=== PATIENT | male | born 1960 | race Caucasian/White ===

== ENCOUNTER 2016-11-17 11:35 | Observation (INO) | payer OTHER ==
[~2016-11-17] VITALS: Ht 182.9 cm; Wt 123.9 kg
[2016-11-17] MEDS ORDERED: RX-NITROGLYCERIN 0.4 MG TAB BTL 25'S SL ONE (11:39)
[2016-11-17] MEDS ORDERED: ASPIRIN 81 MG CHEW (CHILDREN'S ASA) ONE (11:40)
--- OUTSIDE RECORDS SUMMARY | 2016-11-17 11:40 | XMS REPORT ---
Author MINO Thompson [facility] eClinicalWorks Address Unknown Phone Unavailable Care Team Providers Care Supervisor Plastic Sheets Name Role Phone MINO WINN Unavailable Allergies No Known Allergies Problems Problem Type Condition Code Onset Dates Condition Status Problem CAD (coronary artery disease) I25.10 Active Problem HTN (hypertension) I10 Active Problem BPH (benign prostatic hyperplasia) N40.0 Active Problem ED (erectile dysfunction) N52.9 Active Problem Cardiac defibrillator in place Z95.810 Active Problem Social anxiety disorder F40.10 Active Problem Arthritis M19.90 Active Problem Anxiety F41.9 Active Problem Hypercholesterolemia E78.0 Active Problem Hypercholesteremia E78.0 Active Problem COPD (chronic obstructive pulmonary disease) J44.9 Active Problem Declined smoking cessation Z78.9 Active Medications Medication Code System Code Instructions Start Date End Date Status Dosage Spiriva Respimat [facility][NOTE 3] [address]-27 2.5 MCG/ACT Inhalation Once a day AprSeptember 13, 2015 1 puff Results No Known Results Summary Purpose eClinicalWorks Submission
--- OUTSIDE RECORDS SUMMARY | 2016-11-17 11:40 | XMS REPORT ---
Author Author MINO WINN Organization [facility] Address [address] [place] [address] Care Team Providers Care Olive Knocker Name Role Phone PA MINO Unavailable PROBLEMS Type Condition ICD9-CM Code [id number] Code Onset Dates Condition Status SNOMED Code Problem Cardiac defibrillator in place Z95.810 Active 144578869 Problem BPH (benign prostatic hyperplasia) N40.0 Active 423509704 Problem CAD (coronary artery disease) I25.10 Active 51050620 Problem Pure hypercholesterolemia E78.00 Active 185866728 Problem ED (erectile dysfunction) N52.9 Active 870927769 Problem Anxiety F41.9 Active 24867557 Problem Social anxiety disorder F40.10 Active 67137031 Problem Declined smoking cessation Z78.9 Active 348298929 Problem HTN (hypertension) I10 Active 33439861 Problem Arthritis M19.90 Active 6421966 Problem COPD (chronic obstructive pulmonary disease) J44.9 Active 74615801 ALLERGIES Unknown Allergies SOCIAL HISTORY No smoking Hx information available PLAN OF CARE VITAL SIGNS MEDICATIONS Medication Instructions Dosage Frequency Start Date End Date Duration Status BuPROPion HCl (XL) 150 MG Orally Once a day 2 tablet in the morning 24h Active Abilify 2 MG Orally Once a day 1 tablet 24h Active Albuterol Sulfate HFA 108 (90 Base) MCG/ACT Inhalation every 4 hrs 2 puffs as needed 4h Apr, Active Sertraline HCl 100 MG Orally Once a day 1 tablet 24h 30 days Active Breo Ellipta 100-25 MCG/INH Inhalation Once a day 1 puff 24h Aug, Active RESULTS No Results PROCEDURES No Known procedures IMMUNIZATIONS No Known Immunizations
--- OUTSIDE RECORDS SUMMARY | 2016-11-17 11:40 | XMS REPORT ---
Author MINO Thompson [facility] eClinicalWorks Address Unknown Phone Unavailable Care Team Providers Care Service Operations Manager Name Role Phone MINO WINN CP Unavailable Allergies, Adverse Reactions, Alerts Substance Reaction Event Type N.K.D.A. Info Not Available Non Drug Allergy Problems Problem Type Condition Code Onset Dates Condition Status Problem CAD (coronary artery disease) I25.10 Active Problem HTN (hypertension) I10 Active Problem BPH (benign prostatic hyperplasia) N40.0 Active Problem Social anxiety disorder F40.10 Active Problem Arthritis M19.90 Active Problem Anxiety F41.9 Active Problem Hypercholesterolemia E78.0 Active Problem Hypercholesteremia E78.0 Active Problem COPD (chronic obstructive pulmonary disease) J44.9 Active Problem Declined smoking cessation Z78.9 Active Assessment CAD (coronary artery disease) I25.10 Active Assessment HTN (hypertension) I10 Active Assessment ED (erectile dysfunction) N52.9 Active Assessment Social anxiety disorder F40.10 Active Assessment COPD (chronic obstructive pulmonary disease) J44.9 Active Assessment Hypercholesterolemia E78.0 Active Problem ED (erectile dysfunction) N52.9 Active Assessment Arthritis M19.90 Active Problem Cardiac defibrillator in place Z95.810 Active Medications Medication Code System Code Instructions Start Date End Date Status Dosage Abilify [facility] [address]-44 2 MG Orally Once a day 1 tablet Pravastatin Sodium [facility] [address]-02 20 MG Orally Once a day May 17, 2015 1 tablet Breo Ellipta [facility] [address]-00 100-25 MCG/INH Inhalation Once a day August 1 puff Lisinopril [facility] [address]-86 20 mg Orally Once a day 1 tablet BuPROPion HCl (XL) [facility] [address]-55 150 MG Orally Once a day 2 tablet in the morning Albuterol Sulfate HFA [facility] [address]-49 108 (90 Base) MCG/ACT Inhalation every 4 hrs May 09, 2015 2 puffs as needed Procedures Procedure Coding System Code Date Office Visit, Est Pt., Level 4 CPT-4 25306 2015 Vital Signs Date/Time: 2015 Cardiac Monitoring Heart Rate 72 bpm Weight 267.7 lbs Height 72 in BMI 36.30 Index Blood Pressure Diastolic 84 mmHg Blood Pressure Systolic 128 mmHg Results No Known Results Summary Purpose eClinicalWorks Submission
--- OUTSIDE RECORDS SUMMARY | 2016-11-17 11:40 | XMS REPORT ---
Author MINO Thompson [facility] eClinicalWorks Address Unknown Phone Unavailable Care Team Providers Care Computer Project Manager Name Role Phone MINO WINN Unavailable Allergies [...] Problem Declined smoking cessation Z78.9 Active Assessment BPH (benign prostatic hyperplasia) N40.0 Active Assessment COPD (chronic obstructive pulmonary disease) J44.9 Active Problem ED (erectile dysfunction) N52.9 Active Problem Cardiac defibrillator in place Z95.810 Active Medications Medication Code System Code Instructions Start Date End Date Status Dosage Albuterol Sulfate A [facility] [address]-51 108 (90 Base) MCG/ACT Inhalation every 4 hrs May 09, 2015 2 puffs as needed Results No Known Results Summary Purpose eClinicalWorks Submission
--- OUTSIDE RECORDS SUMMARY | 2016-11-17 11:40 | XMS REPORT ---
Author MINO Thompson [facility] eClinicalWorks Address Unknown Phone Unavailable Care Team Providers Care City Collector Name Role Phone MINO WINN CP Unavailable Allergies No Known Allergies Problems Problem [...] Problem Declined smoking cessation Z78.9 Active Medications No Known Medications Results No Known Results Summary Purpose eClinicalWorks Submission
--- OUTSIDE RECORDS SUMMARY | 2016-11-17 11:40 | XMS REPORT ---
Author MINO Thompson [facility] eClinicalWorks Address Unknown Phone Unavailable Care Team Providers Care Environmental Sciences Professor Name Role Phone MINO WINN Unavailable Allergies [...] Instructions Start Date End Date Status Dosage Sertraline HCl [facility] [address]-09 100 MG Orally Once a day 1 tablet Results No Known Results Summary Purpose eClinicalWorks Submission
--- OUTSIDE RECORDS SUMMARY | 2016-11-17 11:40 | XMS REPORT ---
Author MINO Thompson [facility] eClinicalWorks Address Unknown Phone Unavailable Care Team Providers Care Beamer Helper Name Role Phone MINO WINN Unavailable Allergies [...] Date End Date Status Dosage Albuterol Sulfate HFA [facility] [address]-68 108 (90 Base) MCG/ACT Inhalation every 4 hrs May 09, 2015 2 puffs as needed Breo Ellipta [facility] [address]-92 100-25 MCG/INH Inhalation Once a day August 1 puff Results No Known Results Summary Purpose eClinicalWorks Submission
--- OUTSIDE RECORDS SUMMARY | 2016-11-17 11:40 | XMS REPORT ---
Author MINO Thompson [facility] eClinicalWorks Address Unknown Phone Unavailable Care Team Providers Care Jig Boring Machine Set Up Operator Name Role Phone MINO WINN CP Unavailable Allergies, Adverse Reactions, Alerts Substance Reaction Event Type N.K.D.A. Info Not Available Non Drug Allergy Problems Problem Type Condition Code Onset Dates Condition Status Problem CAD (coronary artery disease) I25.10 Active Problem HTN (hypertension) I10 Active Problem BPH (benign prostatic hyperplasia) N40.0 Active Problem Social anxiety disorder F40.10 Active Assessment ED (erectile dysfunction) N52.9 Active Problem Arthritis M19.90 Active Problem Anxiety F41.9 Active Problem Hypercholesterolemia E78.0 Active Problem Hypercholesteremia E78.0 Active Problem COPD (chronic obstructive pulmonary disease) J44.9 Active Problem Declined smoking cessation Z78.9 Active Assessment BPH (benign prostatic hyperplasia) N40.0 Active Assessment Arthritis M19.90 Active Assessment Cardiac defibrillator in place Z95.810 Active Assessment CAD (coronary artery disease) I25.10 Active Assessment Hypercholesterolemia E78.0 Active Assessment HTN (hypertension) I10 Active Assessment Social anxiety disorder F40.10 Active Problem ED (erectile dysfunction) N52.9 Active Assessment COPD (chronic obstructive pulmonary disease) J44.9 Active Problem Cardiac defibrillator in place Z95.810 Active Medications Medication Code System Code Instructions Start Date End Date Status Dosage Symbicort [facility] [address]-57 160-4.5 MCG/ACT Inhalation Twice a day September 18, 2015 2 puffs Albuterol Sulfate HFA [facility] [address]-68 108 (90 Base) MCG/ACT Inhalation every 4 hrs May 09, 2015 2 puffs as needed Spiriva Respimat [facility] [address]-81 2.5 MCG/ACT Inhalation Once a day Apr [address] [facility] [address]-65 20 MG Orally Once a day 1 tablet BuPROPion HCl (XL) [facility] [address]-20 150 MG Orally Once a day 2 tablet in the morning Viagra [facility] [address]-07 100 MG Orally Once a day May 09, 2015 August 07, 2015 1 tablet as needed Pravastatin Sodium [facility] [address]-87 20 MG Orally Once a day May 17, [address] [facility] [address]-46 2 MG Orally Once a day [address] [facility] [address]-58 25 % Intravenous Twice a day 100 drops as needed Sertraline HCl [facility] [address]-18 100 MG Orally Once a day 1 tablet Tamsulosin HCl [facility] [address]-91 0.4 MG Orally Once a day May 09, 2015 August 07, 2015 1 capsule 30 minutes after the same meal each day Procedures Procedure Coding System Code Date Office Visit, Est Pt., Level 4 CPT-4 34493 July 11, 2015 Vital Signs Date/Time: July 11, 2015 Temperature 97.5 F Weight 271.0 lbs Height 72 in BMI 36.75 Index Blood Pressure Diastolic 81 mmHg Blood Pressure Systolic 130 mmHg Cardiac Monitoring Heart Rate 92 bpm Results No Known Results Summary Purpose eClinicalWorks Submission
--- OUTSIDE RECORDS SUMMARY | 2016-11-17 11:40 | XMS REPORT ---
Author MINO Thompson [facility] eClinicalWorks Address Unknown Phone Unavailable Care Team Providers Care Brazer [employer]age Name Role Phone MINO WINN Unavailable Allergies [...] Instructions Start Date End Date Status Dosage Breo Ellipta [facility] [address]-03 100-25 MCG/INH Inhalation Once a day August 1 puff Results No Known Results Summary Purpose eClinicalWorks Submission
[2016-11-17 11:56] LABS: BASOPHILS # (AUTO) 0.1 10^3/uL (0.0-0.1); BASOPHILS % (AUTO) 1 % (0-10); EOSINOPHILS # (AUTO) 0.3 10^3/uL (0.0-0.3); EOSINOPHILS % (AUTO) 3 % (0-10); LYMPHOCYTES # (AUTO) 2.9 X 10^3 (1.0-4.0); LYMPHOCYTES % (AUTO) 29 % (12-44); MEAN CORPUSCULAR HEMOGLOBIN 31 PG (25-34); MEAN CORPUSCULAR HGB CONC 34 G/DL (32-36); MEAN CORPUSCULAR VOLUME 89 FL (80-99); MEAN PLATELET VOLUME 11.2 FL (7.4-10.4); MONOCYTES # (AUTO) 0.6 X 10^3 (0.0-1.0); MONOCYTES % (AUTO) 6 % (0-12); NEUTROPHILS # (AUTO) 6.3 X 10^3 (1.8-7.8); NEUTROPHILS % (AUTO) 62 % (42-75); PLATELET COUNT 146 10^3/uL (130-400); RED BLOOD COUNT 5.54 10^6/uL (4.35-5.85); RED CELL DISTRIBUTION WIDTH 12.9 % (10.0-14.5); WHITE BLOOD COUNT 10.2 10^3/uL (4.3-11.0)
[2016-11-17] MEDS ORDERED: RX-NITROGLYCERIN 0.4 MG TAB BTL 25'S SL PRN (12:00)
[2016-11-17] MEDS ORDERED: RT-ALBUTEROL/IPRATROPIUM 3 ML (DUONEB) VIAL INH ONE (12:00)
[2016-11-17] MEDS ORDERED: ASPIRIN 81 MG CHEW (CHILDREN'S ASA) PO ONE (12:00)
[2016-11-17 12:13] LABS: ALANINE AMINOTRANSFERASE 35 U/L (0-55); ALBUMIN 3.7 GM/DL (3.2-4.5); ANION GAP 11 MMOL/L (5-14); ASPARTATE AMINO TRANSFERASE 21 U/L (5-34); BILIRUBIN,TOTAL 0.5 MG/DL (0.1-1.0); BLOOD UREA NITROGEN 9 MG/DL (7-18); BUN/CREATININE RATIO 11; CALCIUM 8.8 MG/DL (8.5-10.1); CARBON DIOXIDE 26 MMOL/L (21-32); CHLORIDE 101 MMOL/L (98-107); CREATININE SERUM 0.83 MG/DL (0.60-1.30); GFR ESTIMATED > 60; GLUCOSE 217 MG/DL (70-105); MAGNESIUM 2.5 MG/DL (1.8-2.4); POTASSIUM 3.8 MMOL/L (3.6-5.0); SODIUM 138 MMOL/L (135-145)
[2016-11-17 12:20] LABS: MYOGLOBIN SERUM 109.3 NG/ML (10.0-92.0)
--- NOTE | 2016-11-17 12:24 | Diagnostic Imaging Report ---
INDICATION: Chest pain, shortness of breath. COMPARISON: None. FINDINGS: Single view of the chest demonstrates infiltrate in the lingula and left base with small effusion. The right lung is clear. The heart is prominent without pulmonary edema. There is no pneumothorax. Pacemaker is stable. IMPRESSION: Infiltrate and small effusion left base. Followup recommended. Dictated by: Dictated on workstation # [id number]
[2016-11-17 12:30] LABS: INR 0.9 (0.8-1.4); PROTHROMBIN TIME PATIENT 12.4 SEC (12.2-14.7)
--- NOTE | 2016-11-17 12:30 | ED Chest Pain ---
General Chief Complaint: Chest Pain Stated Complaint: CP Nursing Triage Note: PT AMBULATED TO ROOM. PT STATES HE STARTED HAVING CHEST PAIN APPROX. 1 HOUR AGO WHILE HE WAS SITTING IN HIS RECLINER. PT STATES HE HAS NEVER HAD THIS PAIN BEFORE. PT STATES PAIN RADIATES TO HIS LEFT SHOULD/ARM AND RATES PAIN 3/10. NO ASA OR NITRO WERE TAKEN BEFORE ARRIVAL. Nursing Sepsis Screen: No Definite Risk Source: patient Exam Limitations: no limitations History of Present Illness Time seen by provider: 11:37 Initial Comments This 56-year-old gentleman presents to the emergency room with complaints of chest pain in the left upper chest that radiated to the arm and neck. Symptoms started about one hour prior to arrival. He was at rest when symptoms started. He is notably hypertensive on arrival. He denies any alleviating or exacerbating factors. He is short of air and wheezing which he reports as his baseline. He does have COPD. He denies any nausea, vomiting, lightheadedness, or diaphoresis. He does have a pacemaker but cannot tell me exactly what his underlying heart condition was that required pacemaker placement. He describes his pain as a tingling and pressure reported as 3/10. Patient is a smoker. He sees a overedge machine operator at a heart center in [place] but he cannot recall the overedge machine operator's name. Allergies and Home Medications Allergies Coded Allergies: No Known Drug Allergies (Unverified , 11/17/16) Review of Systems Constitutional: no symptoms reported EENTM: No Symptoms Reported Respiratory: No Symptoms Reported Cardiovascular: See HPI Gastrointestinal: No Symptoms Reported Genitourinary: No Symptoms Reported Musculoskeletal: no symptoms reported Skin: no symptoms reported Psychiatric/Neurological: No Symptoms Reported Endocrine: No Symptoms Reported Hematologic/Lymphatic: No Symptoms Reported Past Rxmodqx-Rhekyl-Fyianw Hx Patient Social History Alcohol Use: Denies Use Recreational Drug Use: No Smoking Status: Current Everyday Smoker Type Used: Cigarettes 2nd Hand Smoke Exposure: Yes Recent Foreign Travel: No Contact w/Someone Who Travel: No Recent Infectious Disease Expo: No Recent Hopitalizations: No Physical Abuse: No Sexual Abuse: No Seasonal Allergies Seasonal Allergies: No Surgeries History of Surgeries: Yes Surgeries: Pacemaker Respiratory History of Respiratory Disorde: Yes Respiratory Disorders: Asthma, COPD, Emphysema Currently Using CPAP: No Currently Using BIPAP: No Cardiovascular History of Cardiac Disorders: Yes Cardiac Disorders: Hypertension Neurological History of Neurological Disord: No Genitourinary History of Genitourinary Disor: No Gastrointestinal History of Gastrointestinal Di: No Musculoskeletal History of Musculoskeletal Dis: No Endocrine History of Endocrine Disorders: No HEENT History of HEENT Disorders: No Cancer History of Cancer: No Psychosocial History of Psychiatric Problem: No Suicide Risk Score: 0 Integumentary History of Skin or Integumenta: No Blood Transfusions History of Blood Disorders: No Physical Exam Vital Signs Vital Sign - Last 12Hours 11/17/16 11:39 Temp 96.5 Pulse 81 Resp 18 B/P (MAP) 151/114 Capillary Refill : Less Than 3 Seconds General Appearance: WD/WN, Mild Distress HEENT: PERRL/EOMI, Normal ENT Inspection Neck: Normal Inspection, No JVD Respiratory: Chest Non Tender, No Accessory Muscle Use, No Respiratory Distress , Wheezing Cardiovascular: Regular Rate, Rhythm, No Edema, No Murmur, Normal Peripheral Pulses Gastrointestinal: Normal Bowel Sounds, Non Tender, Soft Extremity: Non Tender, Pedal Edema, Other (negative Chaya) Neurologic/Psychiatric: Alert, Oriented x3, No Motor/Sensory Deficits, Normal Mood/Affect, manifest clerk II-XII Norm as Tested Skin: Normal Color, Warm/Dry Progress/Results/Core Measures Results/Orders Lab Results Laboratory Tests Test 11/17/16 11:47 Range/Units White Blood Count 10.2 4.3-11.0 10^3/uL Red Blood Count 5.54 4.35-5.85 10^6/uL Hemoglobin 17.0 13.3-17.7 G/DL Hematocrit 49 40-54 % Mean Corpuscular Volume 89 80-99 FL Mean Corpuscular Hemoglobin 31 25-34 PG Mean Corpuscular Hemoglobin Concent 34 32-36 G/DL Red Cell Distribution Width 12.9 10.0-14.5 % Platelet Count 146 130-400 10^3/uL Mean Platelet Volume 11.2 H 7.4-10.4 FL Neutrophils (%) (Auto) 62 42-75 % Lymphocytes (%) (Auto) 29 12-44 % Monocytes (%) (Auto) 6 0-12 % Eosinophils (%) (Auto) 3 0-10 % Basophils (%) (Auto) 1 0-10 % Neutrophils # (Auto) 6.3 1.8-7.8 X 10^3 Lymphocytes # (Auto) 2.9 1.0-4.0 X 10^3 Monocytes # (Auto) 0.6 0.0-1.0 X 10^3 Eosinophils # (Auto) 0.3 0.0-0.3 10^3/uL Basophils # (Auto) 0.1 0.0-0.1 10^3/uL Prothrombin Time 12.4 12.2-14.7 SEC INR Comment 0.9 0.8-1.4 Activated Partial Thromboplast Time 25 24-35 SEC D-Dimer 0.69 H 0.00-0.49 UG/ML Sodium Level 138 135-145 MMOL/L Potassium Level 3.8 3.6-5.0 MMOL/L Chloride Level 101 98-107 MMOL/L Carbon Dioxide Level 26 21-32 MMOL/L Anion Gap 11 5-14 MMOL/L Blood Urea Nitrogen 9 7-18 MG/DL Creatinine 0.83 0.60-1.30 MG/DL Estimat Glomerular Filtration Rate > 60 BUN/Creatinine Ratio 11 Glucose Level 217 H 70-105 MG/DL Calcium Level 8.8 8.5-10.1 MG/DL Magnesium Level 2.5 H 1.8-2.4 MG/DL Total Bilirubin 0.5 0.1-1.0 MG/DL Aspartate Amino Transf (AST/SGOT) 21 5-34 U/L Alanine Aminotransferase (ALT/SGPT) 35 0-55 U/L Alkaline Phosphatase 111 40-136 U/L Myoglobin 109.3 H 10.0-92.0 NG/ML Troponin I < 0.30 <0.30 NG/ML C-Reactive Protein High Sensitivity 0.37 0.00-0.50 MG/DL B-Type Natriuretic Peptide < 10.0 <100.0 PG/ML Total Protein 6.0 L 6.4-8.2 GM/DL Albumin 3.7 3.2-4.5 GM/DL My Orders Orders - ULYSSES GROSS MD Cbc With Automated Diff (11/17/16 11:37) Magnesium (11/17/16 11:37) Chest 1 View, Ap/Pa Only (11/17/16 11:37) Ekg Tracing (11/17/16 11:37) Cardiac Profile 1 (11/17/16 11:37) Comprehensive Metabolic Panel (11/17/16 11:37) Myoglobin Serum (11/17/16 11:37) Protime With Inr (11/17/16 11:37) Partial Thromboplastin Time (11/17/16 11:37) O2 (11/17/16 11:37) Monitor-Rhythm Ecg Trace Only (11/17/16 11:37) Lipid Panel (11/18/16 06:00) Saline Lock/Iv-Start (11/17/16 11:37) Rx-Nitroglycerin Sl Tabs (Rx-Nitrostat S (11/17/16 11:39) Aspirin Chewable Tablet (Baby Aspirin Ch (11/17/16 11:40) BNP (11/17/16 11:47) Albuterol/Ipra Inhalation Soln (Duoneb I (11/17/16 12:00) Svn Sm Volume Nebulizer Rt-Rfs (11/17/16 11:47) Aspirin Chewable Tablet (Baby Aspirin Ch (11/17/16 12:00) Rx-Nitroglycerin Sl Tabs (Rx-Nitrostat S (11/17/16 12:00) Fibrin Degradation Products (11/17/16 11:47) Hs C Reactive Protein (11/17/16 12:32) Ct Angio Chest W (11/17/16 12:49) Iohexol Injection (Omnipaque 350 Mg/Ml 1 (11/17/16 13:00) Ns (Ivpb) (Sodium Chloride 0.9% Ivpb Bag (11/17/16 13:00) Medications Given in ED Current Medications Medications Dose Ordered Sig/Arik Route Start Time Stop Time Status Last Admin Dose Admin Albuterol/ Ipratropium 3 ml ONCE ONCE INH 11/17/16 12:00 11/17/16 12:01 DC 11/17/16 12:10 3 ML Aspirin 324 mg ONCE ONCE PO 11/17/16 12:00 11/17/16 12:01 DC 11/17/16 11:45 324 MG Iohexol 150 ml ONCE ONCE IV 11/17/16 13:00 11/17/16 13:01 DC 11/17/16 13:01 145 ML Nitroglycerin 0.4 mg PRN PRN SL 11/17/16 12:00 11/17/16 16:11 DC 11/17/16 11:48 0.4 MG Sodium Chloride 100 ml ONCE ONCE IV 11/17/16 13:00 11/17/16 13:01 DC 11/17/16 13:01 100 ML Vital Signs/I&O Vital Sign - Last 12Hours 11/17/16 11/17/16 11/17/16 11/17/16 11:39 11:39 11:39 12:11 Temp 96.5 Pulse 81 Resp 18 B/P (MAP) 151/114 Pulse Ox 95 95 96 O2 Delivery Nasal Cannula Nasal Cannula Nasal Cannula Nasal Cannula O2 Flow Rate 3.0 3.0 3.0 3.00 FiO2 95 Blood Pressure Mean: 126 Progress Note #1: Time: 12:31 Progress Note Patient reports the chest pain decreased from 3/10 down to 1/10 after 2 nitroglycerin. He did not want the third nitroglycerin. There is suspicion of pneumonia in the left lower lung on chest x-ray. Blood pressure improved with nitroglycerin. Progress Note #2: Time: 14:42 Progress Note Patient remains pain-free. CT angiogram was performed due to elevated d-dimer. There is no evidence of pulmonary embolus or pneumonia. Labs also would not correlate with pneumonia. Patient was admitted for cardiac rule out and treatment of COPD exacerbation. ECG Initial ECG Impression Date: Nov 17, 2016 Initial ECG Impression Time: 11:37 Initial ECG Rate: 77 Initial ECG Rhythm: Normal Sinus Initial ECG Impression: Normal Comment Normal sinus rhythm with no ST elevation or depression. First-degree AV block and right bundle branch block. No prior for comparison. Diagnostic Imaging Diagonstic Imaging: Xray Plain Films/CT/US/NM/MRI: chest Comments Chest x-ray viewed by me and report reviewed. See report below: NAME: IVONNE FLOWERS [facility] REC#: [id number] PT STATUS: REG ER : 1960 PHYSICIAN: ULYSSES GROSS MD ADMIT DATE: 11/17/16/ER Draft Date of Exam:11/17/16 CHEST 1 VIEW, AP/PA ONLY INDICATION: Chest pain, shortness of breath. COMPARISON: None. FINDINGS: Single view of the chest demonstrates infiltrate in the lingula and left base with small effusion. The right lung is clear. The heart is prominent without pulmonary edema. There is no pneumothorax. Pacemaker is stable. IMPRESSION: Infiltrate and small effusion left base. Followup recommended. Dictated on workstation # [id number] Dict: 11/17/16 1220 Trans: 11/17/16 1224 [facility] [id number] Interpreted by: CARLIE JOHNSON Diagonstic Imaging: CT Plain Films/CT/US/NM/MRI: chest Comments CT angiogram of the chest viewed by me and report reviewed. See report below: NAME: IVONNE FLOWERS [facility] REC#: [id number] PT STATUS: ADM Tricia : 1960 PHYSICIAN: ULYSSES GROSS MD ADMIT DATE: 11/17/16/ICU Signed Date of Exam: 11/17/16 CT ANGIO CHEST W PROCEDURE: CT angiography of the chest with contrast. TECHNIQUE: Multiple contiguous axial images were obtained through the chest after uneventful bolus administration of intravenous contrast. Reconstructed CTA MIP acquisitions were also performed. INDICATION: Shortness of breath, chest pain. COMPARISON: None. FINDINGS: The heart is minimally prominent without pericardial effusion. There is a pacemaker which appears to be in satisfactory position. There is no pulmonary embolism or acute aortic pathology. There was some chronic pleural thickening and scarring with atelectasis in the left base. Doubtful if this is acute infiltrate. There is a focal area of pleural nodularity anterior to the left upper lobe. Right lung is clear. There is no pneumothorax, effusion or consolidation. Osseous structures and visualized upper abdominal solid organs are unremarkable. The gallbladder is surgically absent. IMPRESSION: 1. No pulmonary embolism or acute aortic pathology. 2. Pleural thickening, nodularity and atelectasis in the left lung base, likely chronic. Followup within three months recommended. 3. No obvious acute infiltrate. Dictated by: Dictated on workstation # [id number] Dict: 11/17/16 1321 Trans: 11/17/16 1443 Interpreted by: CARLIE JOHNSON Electronically signed by: CARLIE JOHNSON 11/17/16 1443 Departure Communication (Admissions) Time/Spoke to Admitting Phy: 14:[address] Lucia Skaggs Time/Spoke to Consulting Phy: 14:20 Communication/Consulting Dr. Luna Impression Impression: Primary Impression: Chest pain Qualified Codes: R07.9 - Chest pain, unspecified Additional Impressions: COPD exacerbation Hyperglycemia Disposition: ADMITTED INPATIENT Condition: Improved Admissions Decision to Admit Reason: Admit from ER (General) Decision to Admit/Date: Nov 17, 2016 Time/Decision to Admit Time: 14:00 ULYSSES GROSS MD Nov 17, 2016 12:30
[2016-11-17] MEDS ORDERED: IOHEXOL 350 MG/ML 150 ML (OMNIPAQUE 350) VIAL IV ONE (13:00)
[2016-11-17] MEDS ORDERED: NS 100 ML (IVPB) BAG IV ONE (13:00)
--- NOTE | 2016-11-17 13:28 | Diagnostic Imaging Report ---
PROCEDURE: CT angiography of the chest with contrast. TECHNIQUE: Multiple contiguous axial images were obtained through the chest after uneventful bolus administration of intravenous contrast. Reconstructed CTA MIP acquisitions were also performed. INDICATION: Shortness of breath, chest pain. COMPARISON: None. FINDINGS: The heart is minimally prominent without pericardial effusion. There is a pacemaker which appears to be in satisfactory position. There is no pulmonary embolism or acute aortic pathology. There was some chronic pleural thickening and scarring with atelectasis in the left base. Doubtful if this is acute infiltrate. There is a focal area of pleural nodularity anterior to the left upper lobe. Right lung is clear. There is no pneumothorax, effusion or consolidation. Osseous structures and visualized upper abdominal solid organs are unremarkable. The gallbladder is surgically absent. IMPRESSION: 1. No pulmonary embolism or acute aortic pathology. 2. Pleural thickening, nodularity and atelectasis in the left lung base, likely chronic. Followup within three months recommended. 3. No obvious acute infiltrate. Dictated by: Dictated on workstation # [id number]
[2016-11-17 15:10] VITALS: BP 147/84
[2016-11-17 15:30] VITALS: BP 144/69
[2016-11-17 15:45] VITALS: BP 133/84
[2016-11-17] MEDS ORDERED: PATIENT MAY USE OWN MEDS, ALL PO SCH (15:45)
[2016-11-17] MEDS ORDERED: morphine INJ 10 MG/ML 1ML (SYR OR VIAL) IVP PRN (15:45)
[2016-11-17 16:00] VITALS: BP 165/91
[2016-11-17 16:15] VITALS: BP 174/82
[2016-11-17] MEDS ORDERED: NITROGLYCERIN SUBLINGUAL 0.4 MG TAB (NITROSTAT) SL PRN (16:15)
[2016-11-17 19:45] VITALS: BP 124/76
[2016-11-17] MEDS ORDERED: FLUT1AER IH (21:37)
[2016-11-17] MEDS ORDERED: PRAV20TA3 PO (21:37)
[2016-11-17] MEDS ORDERED: BUPR300T51 PO (21:37)
[2016-11-17] MEDS ORDERED: SERT100T8 PO (21:37)
[2016-11-17] MEDS ORDERED: LISI-552 PO (21:37)
[2016-11-17] MEDS ORDERED: TAMS0.4C2 PO (21:37)
[2016-11-18] VITALS: BP 156/79
[2016-11-18 04:00] VITALS: BP 157/85
[2016-11-18 04:40] LABS: CHOLESTEROL 174 MG/DL (< 200); DIRECT LDL 121 MG/DL (1-129); TRIGLYCERIDES 175 MG/DL (<150); VLDL CHOLESTEROL 35 MG/DL (5-40)
[2016-11-18 08:30] VITALS: BP 131/65
[2016-11-18] MEDS ORDERED: ASPIRIN E.C. 325 MG (ECOTRIN) TABLET PO SCH (09:00)
--- NOTE | 2016-11-18 10:40 | Discharge Instructions ---
Discharge [facility] Discharge Medications New, Converted or Re-Newed RX: Other Continued Medications: Bupropion HCl (Bupropion Xl) 300 Mg Tab.er.24h 300 MG PO, TAB Fluticasone/Vilanterol (Breo Ellipta 100-25 Mcg INH) 1 Each Blst.w.dev 1 EACH IH DAILY Lisinopril (Lisinopril) 20 Mg Tablet 20 MG PO DAILY, TAB Pravastatin Sodium (Pravastatin Sodium) 20 Mg Tablet 20 MG PO DAILY, TAB Sertraline HCl (Sertraline HCl) 100 Mg Tablet 100 MG PO DAILY, TAB Tamsulosin HCl (Tamsulosin HCl) 0.4 Mg Cap.er.24h 0.4 MG PO DAILY, CAP Patient Instructions Goal/Follow Up Appt: SOMEONE FROM [facility] WILL CALL YOU WITH AN APPOINTMENT FOR HOSPITAL FOLLOW UP ON SATURDAY. WE WILL ALSO ARRANGE FOR YOU TO TRANSITION CARE TO ONE OF THE [facility] CARDIOLOGISTS YOU DISCUSSED WITH DR HICKS. Patient Instructions: PLEASE CONTINUE YOUR REGULAR MEDICATION REGIMEN. USE YOUR NEBS FOUR TIMES PER DAY UNTIL YOUR HOSPITAL FOLLOW UP APPOINTMENT. Return to The Hospital For: INCREASING SHORTNESS OF BREATH, PALPITATIONS, OR CHEST PAIN Activity & Diet Discharge Diet: Low Fat/Low Cholesterol Activity as Tolerated: Yes Copy Copies To 1: HOMAR MARTINEZ APRN, MD Nov 18, 2016 10:40
--- NOTE | 2016-11-18 11:58 | Short Stay Summary ---
HPI History of Present Illness: 56yo gentleman presented to ER with complaints of chest pain radiating to his left arm and left side of his neck. He was working on his computer but it did not go away after about an hour and so he decided to come to hospital. He sees Angela Moore at [facility] [place] and borderline diabetes. He sees a health clinician in [place] who put his pacemaker in. He does not know why he has a pacemaker and does not recall a specific arrhythmia or bradycardia. He has not had a cath previously. He does not have known CAD and states his last stress test was 3-5 years ago and they told him it was normal. He did have the pacer put in because he passed out 3 times in one week. However, this has not happened since having [facility] pacer. NTG and ASA improved his pain in ER> He has a history of COPD and uses inhalers for same. Source: patient Exam Limitations: no limitations Date seen by provider: Nov 18, 2016 Time Seen by Provider: 10:30 Attending Physician Homar Skaggs MD PCP [facility] Consult Dr Luna - cardiology Date of Admission Nov 17, 2016 at 2:26 pm Home Medications Home Medications Reviewed patient Home Medication Reconciliation Form Allergies Coded Allergies: No Known Drug Allergies (Unverified , 11/17/16) WYJ-Kdztgz-Zrstic Hx Patient Social History Alcohol Use: Rarely Uses Recreational Drug Use: No Smoking Status: Current Everyday Smoker Type Used: Cigarettes 2nd Hand Smoke Exposure: Yes Recent Foreign Travel: No Contact w/other who traveled: No Recent Hopitalizations: No Recent Infectious Disease Expo: No Physical Abuse Screen: No Sexual Abuse: No Immunizations Up To Date Date of Pneumonia Vaccine: Nov 17, 2014 Review of Systems ([facility]) Constitutional: no symptoms reported All Other Systems Reviewed Negative Unless Noted: Yes (Negative excepted noted.) Physical Exam-([facility]) Physical Exam Vital Signs VS - Last 72 Hours, by Label 11/17/16 11/17/16 11/17/16 11/17/16 11:39 11:39 11:39 12:11 Temp 96.5 Pulse 81 Resp 18 B/P (MAP) 151/114 Pulse Ox 95 95 96 O2 Delivery Nasal Cannula Nasal Cannula Nasal Cannula Nasal Cannula O2 Flow Rate 3.0 3.0 3.0 3.00 FiO2 95 11/17/16 11/17/16 11/17/16 11/17/16 14:57 15:10 15:15 15:30 Temp 96.5 96.9 Pulse 61 61 61 63 Resp 17 20 20 B/P (MAP) 147/84 144/69 Pulse Ox 95 96 96 O2 Delivery Room Air Room Air Room Air 11/17/16 11/17/16 11/17/16 11/17/16 15:44 15:45 16:00 16:15 Pulse 62 61 63 Resp 18 20 16 B/P (MAP) 133/84 165/91 174/82 Pulse Ox 95 96 95 O2 Delivery Room Air Room Air Room Air Room Air 11/17/16 11/17/16 11/17/16 11/17/16 16:30 16:34 19:00 19:45 Temp 96.1 Pulse 61 61 Resp 20 B/P (MAP) 124/76 O2 Delivery Room Air Room Air 11/17/16 11/17/16 11/17/16 11/18/16 20:00 20:00 21:00 00:00 Pulse Ox 94 94 94 95 O2 Delivery Room Air Room Air Room Air Room Air 11/18/16 11/18/16 11/18/16 11/18/16 00:00 01:00 04:00 04:00 Temp 97.1 97.2 Pulse 62 60 62 Resp 16 16 B/P (MAP) 156/79 157/85 Pulse Ox 95 95 95 O2 Delivery Room Air Room Air Room Air 11/18/16 11/18/16 11/18/16 11/18/16 07:00 08:30 08:30 09:15 Temp 96.9 Pulse 61 61 Resp 20 B/P (MAP) 131/65 Pulse Ox 93 95 93 O2 Delivery Room Air Room Air Room Air Capillary Refill : Less Than 3 Seconds General Appearance: WD/WN, no apparent distress, obese HEENT: PERRL/EOMI, normal ENT inspection, pharynx normal Neck: non-tender, full range of motion, supple, normal inspection Respiratory: chest non-tender, lungs clear, normal breath sounds, no respiratory distress, no accessory muscle use Cardiovascular: regular rate, rhythm, no edema, no gallop, no JVD, no murmur Gastrointestinal: normal bowel sounds, non tender, soft, no organomegaly Back: normal inspection, no CVA tenderness, no vertebral tenderness Extremities: normal range of motion, non-tender, normal inspection, no pedal edema, no calf tenderness, normal capillary refill Neurologic/Psychiatric: director of finance II-XII nml as tested, no motor/sensory deficits, alert, normal mood/affect, oriented x 3 Skin: normal color, warm/dry Short Stay Diagnosis Discharge Diagnosis-Short Stay Admission Diagnosis CHEST PAIN HISTORY OF ARRHYTHMIA REQUIRING PACEMAKER CHRONIC VENOUS INSUFFICIENCY COPD Final Discharge Diagnosis SAME Conclusion Plan Patient was observed in hospital for changes in his cardiac enzymes and/or EKG. NO changes were found. I did ask Dr Luna to consult, and he kindly saw the patient recommending outpatient stress test and echo. THe patient did tell me he would like to transfer to a health clinician here in town as the trip to [place] is too laborious. WE will help arrange that as well. He had no other acute issues while hospitalized and should return to his PCP for further chronic health maintenance. Clinical Quality Measures AMI/AHF: ASA po Prior to arrival: No DVT/VTE Risk/Contraindication: Risk Factor Score Per Nursin RFS Level Per Nursing on Admit: 2=Moderate Copy Copies To 1: HOMAR MARTINEZ APRN, MD Nov 18, 2016 11:58
[2016-11-18 12:30] VITALS: BP 135/72
--- NOTE | 2016-11-18 12:35 | Consultation-Cardiology ---
HPI-Cardiology Cardiology Consultation: Date of Consultation 11/18/16 Date of Admission Attending Physician Lucia Skaggs MD Admitting Physician [facility] Consulting Physician Chantel LUNA MD HPI: Time Seen by Provider: 12:30 Chief Complaint: Chest pain This is a 56-year-old gentleman with history of active smoking, borderline diabetes and permanent pacemaker. According to the patient the permanent pacemaker was put in because of bradycardia and tachycardia. However he does not remember if anybody said that he has atrial fibrillation. He is not on a blood thinner. He presented with chest discomfort which has not been resolved. He was admitted for observation for rule out. He does not have previous history of coronary artery disease. Review of Systems-Cardiology Review of Systems Constitutional: No As described under HPI, No no symptoms reported, No chills, No fever, No lightheadedness, No malaise, No tiredness, No weight loss, No weight gain, No other Eyes: No As described under HPI, No no symptoms reported, No blindness, No blurred vision, No contact lenses, No drainage, No decreased acuity, No foreign body sensation, No glasses, No inflammation, No pain, No photophobia, No previous injury, No shadows, No tunnel vision, No other, No vision change Ears/Nose/Throat: No As described under HPI, No no symptoms reported, No chronic hearing loss, No epistaxis, No ear discharge, No ear pain, No loose teeth, No mouth pain, No mouth swelling, No nasal drainage, No nose pain, No recent hearing loss, No throat pain, No throat swelling, No ulcerations, No other Respiratory: No no symptoms reported, No As described under HPI, No cough, No orthopnea, No shortness of breath, No SOB with excertion, No SOB at rest, No stridor, No wheezing, No other Cardiovascular: chest pain Gastrointestinal: No no symptoms reported, No As described under HPI, No abdomen distended, No abdominal pain, No blood streaked bowels, No constipation , No diarrhea, No difficulty swallowing, No nausea, No poor appetite, No poor fluid intake, No rectal bleeding, No vomiting, No other, No nausea/vomiting/ diarrhea, No stool coloration changes Genitourinary: No no symptoms reported, No As described under HPI, No burning, No dysuria, No discharge, No frequency, No flank pain, No hematuria, No incontinence, No pain, No urgency, No other, No urine frequency changes, No urine coloration changes Musculoskeletal: No no symptoms reported, No As describe under HPI, No back pain, No gout, No joint pain, No joint swelling, No muscle pain, No muscle stiffness, No neck pain, No other Skin: No no symptoms reported, No As described under HPI, No change in color, No change in hair/nails, No dryness, No lesions, No lumps, No rash, No other, No skin related problems, No ulcerations, No rash on exposed areas, No ulcerations on exposed areas Psychiatric/Neurological: No no symptoms reported, No As described under HPI, No anxiety, No depression, No emotional problems, No headache, No numbness, No pre-existing deficit, No seizure, No tingling, No tremors, No weakness, No other , No focal weakness, No syncope Hematologic: No no symptoms reported, No As described under HPI, No anemia, No blood clots, No easy bleeding, No easy bruising, No swollen glands, No other, No bleeding abnormalities XOP-Ncqnos-Jkbwdq Hx Patient Social History Alcohol Use: Rarely Uses Recreational Drug Use: No Smoking Status: Current Everyday Smoker Type Used: Cigarettes 2nd Hand Smoke Exposure: Yes Recent Foreign Travel: No Recent Infectious Disease Expo: No Hospitalization with Isolation: Denies Physical Abuse Screen: No Sexual Abuse: No Immunizations Up To Date Date of Pneumonia Vaccine: Nov 17, 2014 Past Medical History PMH As described under Assessment. Allergies and Home Medications Allergies Coded Allergies: No Known Drug Allergies (Unverified , 11/17/16) Home Medications Bupropion HCl 300 Mg Tab.er.24h, 300 MG PO, (Reported) Fluticasone/Vilanterol 1 Each Blst.w.dev, 1 EACH IH DAILY, (Reported) Lisinopril 20 Mg Tablet, 20 MG PO DAILY, (Reported) Nitroglycerin 0.4 Mg Tab.subl, 0.4 MG SL PRN, #25 Prescribed by: HAILEY FIGUEREDO on 11/18/16 1305 Pravastatin Sodium 20 Mg Tablet, 20 MG PO DAILY, (Reported) Sertraline HCl 100 Mg Tablet, 100 MG PO DAILY, (Reported) Tamsulosin HCl 0.4 Mg Cap.er.24h, 0.4 MG PO DAILY, (Reported) Physical Exam-Cardiology Physical Exam Vital Signs/I&O Vital Sign - Last 12Hours 11/18/16 11/18/16 11/18/16 11/18/16 04:00 04:00 07:00 08:30 Temp 97.2 96.9 Pulse 62 61 61 Resp 16 20 B/P (MAP) 157/85 131/65 Pulse Ox 95 95 93 O2 Delivery Room Air Room Air Room Air 11/18/16 11/18/16 11/18/16 11/18/16 08:30 09:15 12:30 12:31 Temp 96.1 Pulse 60 Resp 18 B/P (MAP) 135/72 Pulse Ox 95 93 95 95 O2 Delivery Room Air Room Air Room Air Room Air Capillary Refill : Less Than 3 Seconds Data Review Labs Laboratory Tests 11/17/16 16:10: Troponin I < 0.30 11/17/16 21:41: Troponin I < 0.30 11/18/16 03:38: Triglycerides Level 175H, Cholesterol Level 174, LDL Cholesterol Direct 121, VLDL Cholesterol 35, HDL Cholesterol 28L ECG Impression ECG Comment Atrial paced ventricular sensed rhythm. Right bundle branch block. A/P-Cardiology Assessment/Admission Diagnosis Chest pain, permanent pacemaker, active smoking, borderline diabetes Plan Chest pain: Acute coronary syndrome ruled out with negative serial troponins and EKG. However the patient does have history of borderline diabetes and active smoking. Therefore he will require stress testing and echocardiogram as an outpatient. We'll also give nitroglycerin sublingual when necessary. The patient has been educated that if he has refractory chest pain to sublingual nitroglycerin he should seek immediate medical attention. Permanent pacemaker: On EKG no abnormality found. Reason unclear but could be tachycardia bradycardia syndrome. However the patient does not know whether he has atrial fibrillation or not he is not on a blood thinner. The patient wants to transfer his cardiology care to [place]. Office information has been given. We will set up device interrogation as well as stress test and echocardiogram. His old records will also be requested. Thank you for your consultation. Please call me if you have any questions. Bailee Luna MD, FACP, FACC, FSCAI, FHRS, CCDS Interventional Cardiology Cardiac Electrophysiology Vascular Medicine and Endovascular Interventions Clinical Quality Measures AMI/AHF: ASA po Prior to arrival: No DVT/VTE Risk/Contraindication: Risk Factor Score Per Nursin RFS Level Per Nursing on Admit: 2=Moderate Chantel LUNA MD Nov 18, 2016 12:34 pm
[2016-11-18] MEDS ORDERED: NITR0.4T39 SL (13:05)
== END 2016-11-18 10:37 | disposition home or self-care (01) ==
LOC: ER 11:36 → ICU 14:26 → UNDOADMOB 14:26 → ICU 15:10 → UNDODISOB 11-18 13:25
PROVIDERS: ADMIT Pediatrics; ATTEND Pediatrics
DX: J44.1 Chronic obstructive pulmonary disease with (acute) exacerbation (principal); J90 Pleural effusion, not elsewhere classified; R91.8 Other nonspecific abnormal finding of lung field; R73.9 Hyperglycemia, unspecified; I45.10 Unspecified right bundle-branch block; I10 Essential (primary) hypertension; F17.210 Nicotine dependence, cigarettes, uncomplicated; Z79.899 Other long term (current) drug therapy; Z95.0 Presence of cardiac pacemaker
CPT/HCPCS: 36415; 71010; 71275; 80053; 80061; 83735; 83874; 83880; 84484; 85025; 85379; 85610; 85730; 86141; 93005; 93041; 94640

== ENCOUNTER 2016-11-20 21:25 | Inpatient (IN) | payer OTHER ==
[~2016-11-20] VITALS: Ht 182.9 cm; Wt 121.8 kg
[~2016-11-20 21:25] MED LIST: BUPR300T51 PO; FLUT1AER IH; LISI-552 PO; NITR0.4T39 SL; PRAV20TA3 PO; SERT100T8 PO; TAMS0.4C2 PO
[2016-11-20] MEDS ORDERED: morphine INJ 10 MG/ML 1ML (SYR OR VIAL) ONE (21:30)
--- OUTSIDE RECORDS SUMMARY | 2016-11-20 21:30 | XMS REPORT ---
Author Author MINO WINN Organization [facility] [place] Address [address] [place] [address] Care Team Providers Care Rn Social Services Name Role Phone STELLA WINNNETTE Unavailable PROBLEMS Type Condition ICD9-CM Code [id number] Code Onset Dates Condition Status SNOMED Code Problem Cardiac defibrillator in place Z95.810 Active 160138462 Problem BPH (benign prostatic hyperplasia) N40.0 Active 790142880 Problem Social anxiety disorder F40.10 Active 78504847 Problem Pure hypercholesterolemia E78.00 Active 961512883 Problem Declined smoking cessation Z78.9 Active 890872905 Problem Anxiety F41.9 Active 68167923 Problem CAD (coronary artery disease) I25.10 Active 76741744 Problem ED (erectile dysfunction) N52.9 Active 926317790 Problem Arthritis M19.90 Active 0857257 Problem HTN (hypertension) I10 Active 13618630 Problem COPD (chronic obstructive pulmonary disease) J44.9 Active 63300185 ALLERGIES Substance Reaction Event Type Date Status N.K.D.A. Unknown Non Drug Allergy Mar, Unknown SOCIAL HISTORY No smoking Hx information available PLAN OF CARE Activity Details Follow Up 3 Months, prn Reason:chm VITAL SIGNS Height 72 in 2016-04-03 Weight 266.7 lbs 2016-04-03 Temperature 98.3 degrees Fahrenheit 2016-04-03 Heart Rate 76 bpm 2016-04-03 Respiratory Rate 22 2016-04-03 BMI 36.17 kg/m2 2016-04-03 Blood pressure systolic 130 mmHg 2016-04-03 Blood pressure diastolic 82 mmHg 2016-04-03 MEDICATIONS Medication Instructions Dosage Frequency Start Date End Date Duration Status Pravastatin Sodium 20 MG Orally Once a day 1 tablet 24h May, 30 day(s) Active BuPROPion HCl (XL) 150 MG Orally Once a day 2 tablet in the morning 24h Active Abilify 2 MG Orally Once a day 1 tablet 24h Active Lisinopril 20 mg Orally Once a day 1 tablet 24h Active Sertraline HCl 100 MG Orally Once a day 1 tablet 24h Active Breo Ellipta 100-25 MCG/INH Inhalation Once a day 1 puff 24h 28 Aug, 2015 Active Tamsulosin HCl 0.4 MG Orally Once a day 1 capsule 24h Active Albuterol Sulfate HFA 108 (90 Base) MCG/ACT Inhalation every 4 hrs 2 puffs as needed 4h Apr, Active Albuterol Sulfate (2.5 MG/3ML) 0.083% Inhalation Three times a day 3 ml 8h Active RESULTS No Results PROCEDURES Procedure Date Ordered Related Diagnosis Body Site Office Visit, Est Pt., Level 4 Apr 03, 2016 IMMUNIZATIONS No Known Immunizations
[2016-11-20] MEDS ORDERED: morphine INJ 10 MG/ML 1ML (SYR OR VIAL) IVP STA (21:41)
[2016-11-20 21:50] LABS: BASOPHILS # (AUTO) 0.1 10^3/uL (0.0-0.1); BASOPHILS % (AUTO) 1 % (0-10); EOSINOPHILS # (AUTO) 0.4 10^3/uL (0.0-0.3); EOSINOPHILS % (AUTO) 3 % (0-10); LYMPHOCYTES # (AUTO) 4.1 X 10^3 (1.0-4.0); LYMPHOCYTES % (AUTO) 29 % (12-44); MEAN CORPUSCULAR HEMOGLOBIN 31 PG (25-34); MEAN CORPUSCULAR HGB CONC 35 G/DL (32-36); MEAN CORPUSCULAR VOLUME 90 FL (80-99); MEAN PLATELET VOLUME 11.9 FL (7.4-10.4); MONOCYTES # (AUTO) 1.1 X 10^3 (0.0-1.0); MONOCYTES % (AUTO) 8 % (0-12); NEUTROPHILS # (AUTO) 8.2 X 10^3 (1.8-7.8); NEUTROPHILS % (AUTO) 60 % (42-75); PLATELET COUNT 168 10^3/uL (130-400); RED BLOOD COUNT 5.45 10^6/uL (4.35-5.85); RED CELL DISTRIBUTION WIDTH 13.2 % (10.0-14.5); WHITE BLOOD COUNT 13.8 10^3/uL (4.3-11.0)
--- NOTE | 2016-11-20 21:51 | ED Chest Pain ---
General Chief Complaint: Chest Pain Stated Complaint: CHEST PAIN Source: patient, EMS History of Present Illness Time seen by provider: 21:28 Initial Comments PT ARRIVES VIA EMS FROM HOME C/O CHEST PAIN X 1 1/2 HOURS, BEGAN WHILE SITTING RATES PAIN 7/10 AT WORST, NOW 5-6/10 TOOK NTG X 2 AT HOME WITHOUT SIGNIFICANT RELIEF, EMS GAVE NTG X 1 WITH PAIN DOWN TO A 4/10, NOW STARTING TO INCREASE AGAIN EMS GAVE ASA 324 MG PAIN RADIATES DOWN BOTH ARMS VERY SHORT OF BREATH + SWEATS + NAUSEA PT HAS HAD SWELLING IN LEGS FOR A COUPLE OF WEEKS--LEFT > RIGHT. NO CALF PAIN PT ADMITTED HERE 11/17/16 FOR SAME, NO STRESS TEST OR CARDIAC CATH DONE. IS TO HAVE DONE OUTPATIENT AT SOMETIME, BUT NOT SCHEDULED YET. CT CHEST ANGIOGRAM ON 11/17/16 SHOWED NO P.E. PT DENIES HISTORY OF PRIOR CAD AND NO HISTORY OF CARDIAC CATH HAS DEMAND PACEMAKER FOR LIB[employer]-TACHY ARRHYTHMIAS--PLACED IN [place], BUT DOES NOT KNOW NAME OF BEET FLUMER, AND DOES NOT SEE A BEET FLUMER NOW. PCP: [facility], SHAHRAM WINN BEET FLUMER--WILL BE ESTABLISHING WITH DR. GARCIA Allergies and Home Medications Allergies Coded Allergies: No Known Drug Allergies (Unverified , 11/17/16) Home Medications Bupropion HCl 300 Mg Tab.er.24h, 300 MG PO, (Reported) Fluticasone/Vilanterol 1 Each Blst.w.dev, 1 EACH IH DAILY, (Reported) Lisinopril 20 Mg Tablet, 20 MG PO DAILY, (Reported) Nitroglycerin 0.4 Mg Tab.subl, 0.4 MG SL PRN, #25 Prescribed by: HAILEY FIGUEREDO on 11/18/16 1305 Pravastatin Sodium 20 Mg Tablet, 20 MG PO DAILY, (Reported) Sertraline HCl 100 Mg Tablet, 100 MG PO DAILY, (Reported) Tamsulosin HCl 0.4 Mg Cap.er.24h, 0.4 MG PO DAILY, (Reported) Review of Systems Constitutional: see HPI, diaphoresis EENTM: No Symptoms Reported Respiratory: See HPI, Cough, Orthopnea, Shortness of Air Cardiovascular: See HPI, Chest Pain, Edema, Denies Lightheadedness, Denies Palpitations, Denies Syncope Gastrointestinal: See HPI, Denies Abdominal Pain, Nausea, Denies Vomiting Genitourinary: No Symptoms Reported Musculoskeletal: see HPI Skin: no symptoms reported Psychiatric/Neurological: No Symptoms Reported Endocrine: No Symptoms Reported Hematologic/Lymphatic: No Symptoms Reported Past Ehholdb-Yyhpmv-Tsshwk Hx Patient Social History Alcohol Use: Occasionally Uses Recreational Drug Use: No Smoking Status: Current Everyday Smoker (3 PPD, NOW DOWN TO 1 PPD) Type Used: Cigarettes 2nd Hand Smoke Exposure: Yes Recent Foreign Travel: No Contact w/Someone Who Travel: No Recent Hopitalizations: No Immunizations Up To Date Date of Pneumonia Vaccine: Nov 17, 2014 Seasonal Allergies Seasonal Allergies: No Surgeries History of Surgeries: Yes (RIGHT ANKLE FX/ORIF WITH LATER HARDWARE REMOVAL, ORAL SURGERY) Surgeries: Gallbladder, Orthopedic, Pacemaker Respiratory History of Respiratory Disorde: Yes (CHRONIC COUGH; SCAR TISSUE ON LUNGS FROM PNEUMONIA) Respiratory Disorders: Asthma, Pneumonia, Chronic Bronchitis, COPD, Emphysema Cardiovascular History of Cardiac Disorders: Yes (PACEMAKER FOR [employer]-TACHY ARRHYTHMIAS) Cardiac Disorders: High Cholesterol, Hypertension Neurological History of Neurological Disord: No Genitourinary History of Genitourinary Disor: No Gastrointestinal History of Gastrointestinal Di: No Musculoskeletal History of Musculoskeletal Dis: Yes (RIGHT ANKLE FX ON 7 PLACES-S/P ORIF WITH LATER HARDWARE REMOVAL) Endocrine History of Endocrine Disorders: No ("MIGHT BE BORDERLINE DIABETIC") HEENT History of HEENT Disorders: No Cancer History of Cancer: No Psychosocial History of Psychiatric Problem: No Integumentary History of Skin or Integumenta: No Blood Transfusions History of Blood Disorders: No Adverse Reaction to a Blood Tr: No Physical Exam Vital Signs Capillary Refill : General Appearance: No Apparent Distress, WD/WN, Other (REEKS OF CIGARETTES) Neck: Full Range of Motion, Normal Inspection, Non Tender, Supple, No Carotid Bruit, No JVD Respiratory: Chest Non Tender, Normal Breath Sounds, No Accessory Muscle Use, Other (MILDLY DYSPNEIC) Cardiovascular: Regular Rate, Rhythm, No Murmur Gastrointestinal: Normal Bowel Sounds, No Organomegaly, No Pulsatile Mass, Non Tender, Soft Extremity: Normal Capillary Refill, Non Tender, No Calf Tenderness, Other ( LEFT LEG WITH 3+ EDEMA, RIGHT LEG WITH 1-2+ EDEMA. 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, resizer operator II-XII Norm as Tested Skin: Normal Color, Warm/Dry Progress/Results/Core Measures Results/Orders Lab Results Laboratory Tests Test 11/20/16 21:21 Range/Units White Blood Count 13.8 H 4.3-11.0 10^3/uL Red Blood Count 5.45 4.35-5.85 10^6/uL Hemoglobin 17.0 13.3-17.7 G/DL Hematocrit 49 40-54 % Mean Corpuscular Volume 90 80-99 FL Mean Corpuscular Hemoglobin 31 25-34 PG Mean Corpuscular Hemoglobin Concent 35 32-36 G/DL Red Cell Distribution Width 13.2 10.0-14.5 % Platelet Count 168 130-400 10^3/uL Mean Platelet Volume 11.9 H 7.4-10.4 FL Neutrophils (%) (Auto) 60 42-75 % Lymphocytes (%) (Auto) 29 12-44 % Monocytes (%) (Auto) 8 0-12 % Eosinophils (%) (Auto) 3 0-10 % Basophils (%) (Auto) 1 0-10 % Neutrophils # (Auto) 8.2 H 1.8-7.8 X 10^3 Lymphocytes # (Auto) 4.1 H 1.0-4.0 X 10^3 Monocytes # (Auto) 1.1 H 0.0-1.0 X 10^3 Eosinophils # (Auto) 0.4 H 0.0-0.3 10^3/uL Basophils # (Auto) 0.1 0.0-0.1 10^3/uL Prothrombin Time 12.8 12.2-14.7 SEC INR Comment 1.0 0.8-1.4 Activated Partial Thromboplast Time 29 24-35 SEC B-Type Natriuretic Peptide < 10.0 <100.0 PG/ML My Orders Orders - ANGEL RILEY DO Morphine Injection (Morphine Injection (11/20/16 21:30) Amylase (11/20/16 21:41) Cbc With Automated Diff (11/20/16 21:41) Comprehensive Metabolic Panel (11/20/16 21:41) Creatine Kinase (11/20/16 21:41) Creatine Kinase Mb (11/20/16 21:41) Lipase (11/20/16 21:41) Partial Thromboplastin Time (11/20/16 21:41) Protime With Inr (9/5/17 21:41) Troponin I (11/20/16 21:41) Chest 1 View, Ap/Pa Only (11/20/16 21:41) O2 (11/20/16 21:41) Ekg Tracing (11/20/16 21:41) BNP (11/20/16 21:41) Monitor-Rhythm Ecg Trace Only (11/20/16 21:41) Magnesium (11/20/16 21:41) Morphine Injection (Morphine Injection (11/20/16 21:41) Progress Note : Progress Note PAIN EASED WITH MORPHINE, BUT NOT COMPLETELY GONE--DOWN TO 3/10 NO DETERIORATION IN PT'S CONDITION DURING ER STAY ECG Initial ECG Impression Time: 21:29 Initial ECG Rate: 67 Initial ECG Impression: 1st Degree AV Block, Acute [place] (INFERIOR, RBBB,) EKG : EKG Time: 21:34 Rate: 64 Rhythm: Normal Sinus ECG Impression: Acute [place] Diagnostic Imaging Comments CXR--CARDIOMEGALY WITH INTERVAL INCREASE IN PULMONARY VASCULAR CONGESTION/EDEMA- -PER RADIOLOGIST REPORT @ 2205 Reviewed: Reviewed by Me Departure Communication (Admissions) Progress Notes 2135--SPOKE WITH DR. GARCIA, ADVISES TO CALL IN EXPERIMENTAL DISPLAY BUILDER 2149--DR. GARCIA CALLED. ADVISES PLAVIX 600 MG AND HEPARIN 5000 UNIT BOLUS 2220--EXPERIMENTAL DISPLAY BUILDER STAFF HERE. Impression Impression: Primary Impression: STEMI (ST elevation myocardial infarction) Disposition: ADMITTED INPATIENT (TO EXPERIMENTAL DISPLAY BUILDER) Condition: Improved Admissions Decision to Admit Reason: Admit from ER (General) (TO EXPERIMENTAL DISPLAY BUILDER) Decision to Admit/Date: Nov 20, 2016 Time/Decision to Admit Time: 21:35 Departure-Patient Inst. Referrals: [facility] (PCP) Primary Care Physician MINO WINN (Family) Primary Care Physician ANGEL RILEY DO Nov 20, 2016 21:51
[2016-11-20 21:54] LABS: PROTHROMBIN TIME PATIENT 12.8 SEC (12.2-14.7)
[2016-11-20] MEDS ORDERED: CLOPIDOGREL 300 MG (PLAVIX) TABLET PO ONE (22:00)
[2016-11-20] MEDS ORDERED: HEParin 1000 UNIT/ML (10ML VIAL) FOR BOLUS IV SCH (22:00)
--- NOTE | 2016-11-20 22:00 | Diagnostic Imaging Report ---
EXAMINATION: Portable chest INDICATION: Chest pain. Comparison is made to a prior study from November 17, 2016 FINDINGS: A pacemaker device is present. There is enlargement of the cardiac silhouette. The pulmonary vascularity appears more prominent than on the previous examination suggesting interval development of pulmonary edema. There is no large effusion. There is no pneumothorax. IMPRESSION: 1. Enlarged cardiac silhouette with interval increase in prominence of pulmonary vascular markings suggesting pulmonary edema. Dictated by: Dictated on workstation # [id number]
[2016-11-20] MEDS ORDERED: NITROGLYCERIN DRIP 25 MG/D5W 250 ML IV ONE (22:07)
[2016-11-20] MEDS ORDERED: HEParin 1000 UNIT/ML (10ML VIAL) FOR BOLUS ONE (22:07)
[2016-11-20] MEDS ORDERED: EPTIFIBATIDE BOLUS 0 ML IV ONE (22:07)
[2016-11-20] MEDS ORDERED: fentaNYL INJECTION 100 MCG/2 ML AMP ONE (22:07)
[2016-11-20] MEDS ORDERED: MIDAZOLAM 5 MG/5 ML (VERSED) VIAL ONE (22:07)
[2016-11-20] MEDS ORDERED: NS IV 1000 ML 1,000 ML ONE (22:08)
[2016-11-20] MEDS ORDERED: HEParin (CATH LAB) 2,000 ML IV ONE (22:08)
[2016-11-20 22:25] LABS: ALANINE AMINOTRANSFERASE 31 U/L (0-55); ALBUMIN 3.7 GM/DL (3.2-4.5); AMYLASE 19 U/L (25-125); ANION GAP 11 MMOL/L (5-14); ASPARTATE AMINO TRANSFERASE 18 U/L (5-34); BILIRUBIN,TOTAL 0.4 MG/DL (0.1-1.0); BLOOD UREA NITROGEN 13 MG/DL (7-18); BUN/CREATININE RATIO 13; CALCIUM 8.3 MG/DL (8.5-10.1); CARBON DIOXIDE 22 MMOL/L (21-32); CHLORIDE 104 MMOL/L (98-107); CREATINE KINASE 203 U/L (30-200); GFR ESTIMATED > 60; GLUCOSE 220 MG/DL (70-105); LIPASE 25 U/L (8-78); MAGNESIUM 2.2 MG/DL (1.8-2.4); POTASSIUM 3.8 MMOL/L (3.6-5.0); SODIUM 137 MMOL/L (135-145); TOTAL PROTEIN 6.3 GM/DL (6.4-8.2)
[2016-11-20 22:31] LABS: TROPONIN I < 0.30 NG/ML (<0.30)
[2016-11-20] MEDS ORDERED: ATROPINE INJECTION 1 MG/10 ML SYR (ABBOTT) ONE (22:36)
[2016-11-20] MEDS ORDERED: NS IV 1000 ML 1,000 ML IV SCH (22:45)
--- NOTE | 2016-11-20 23:29 | History & Physicial-Cardiolgy ---
HPI-Cardiology Cardiology Consultation: Date of Consultation 11/20/16 Date of Admission Attending Physician Chantel Luna MD Admitting Physician [facility] Consulting Physician Chantel LUNA MD HPI: Time Seen by Provider: 22:40 Chief Complaint: Chest pain Chest pain started two hours ago, did not relieve with NTG x 2. SS CP with radiation to both arms. Initial intensity 7/10 -> then 5/10. No other symptoms. Review of Systems-Cardiology Review of Systems Constitutional: No As described under HPI, No no symptoms reported, No chills, No fever, No lightheadedness, No malaise, No tiredness, No weight loss, No weight gain, No other Eyes: No As described under HPI, No no symptoms reported, No blindness, No blurred vision, No contact lenses, No drainage, No decreased acuity, No foreign body sensation, No glasses, No inflammation, No pain, No photophobia, No previous injury, No shadows, No tunnel vision, No other, No vision change Ears/Nose/Throat: No As described under HPI, No no symptoms reported, No chronic hearing loss, No epistaxis, No ear discharge, No ear pain, No loose teeth, No mouth pain, No mouth swelling, No nasal drainage, No nose pain, No recent hearing loss, No throat pain, No throat swelling, No ulcerations, No other Respiratory: No no symptoms reported, No As described under HPI, No cough, No orthopnea, No shortness of breath, No SOB with excertion, No SOB at rest, No stridor, No wheezing, No other Cardiovascular: chest pain Gastrointestinal: No no symptoms reported, No As described under HPI, No abdomen distended, No abdominal pain, No blood streaked bowels, No constipation , No diarrhea, No difficulty swallowing, No nausea, No poor appetite, No poor fluid intake, No rectal bleeding, No vomiting, No other, No nausea/vomiting/ diarrhea, No stool coloration changes Genitourinary: No no symptoms reported, No As described under HPI, No burning, No dysuria, No discharge, No frequency, No flank pain, No hematuria, No incontinence, No pain, No urgency, No other, No urine frequency changes, No urine coloration changes Musculoskeletal: No no symptoms reported, No As describe under HPI, No back pain, No gout, No joint pain, No joint swelling, No muscle pain, No muscle stiffness, No neck pain, No other Skin: No no symptoms reported, No As described under HPI, No change in color, No change in hair/nails, No dryness, No lesions, No lumps, No rash, No other, No skin related problems, No ulcerations, No rash on exposed areas, No ulcerations on exposed areas Psychiatric/Neurological: No no symptoms reported, No As described under HPI, No anxiety, No depression, No emotional problems, No headache, No numbness, No pre-existing deficit, No seizure, No tingling, No tremors, No weakness, No other , No focal weakness, No syncope BDV-Mbnvsy-Ubvuog Hx Patient Social History Alcohol Use: Occasionally Uses Recreational Drug Use: No Smoking Status: Current Everyday Smoker (3 PPD, NOW DOWN TO 1 PPD) Type Used: Cigarettes 2nd Hand Smoke Exposure: Yes Recent Foreign Travel: No Immunizations Up To Date Date of Pneumonia Vaccine: Nov 17, 2014 Past Medical History PMH As described under Assessment. Allergies and Home Medications Allergies Coded Allergies: No Known Drug Allergies (Unverified , 11/17/16) Home Medications Bupropion HCl 300 Mg Tab.er.24h, 300 MG PO, (Reported) Fluticasone/Vilanterol 1 Each Blst.w.dev, 1 EACH IH DAILY, (Reported) Lisinopril 20 Mg Tablet, 20 MG PO DAILY, (Reported) Nitroglycerin 0.4 Mg Tab.subl, 0.4 MG SL PRN, #25 Prescribed by: HAILEY FIGUEREDO on 11/18/16 1305 Pravastatin Sodium 20 Mg Tablet, 20 MG PO DAILY, (Reported) Sertraline HCl 100 Mg Tablet, 100 MG PO DAILY, (Reported) Tamsulosin HCl 0.4 Mg Cap.er.24h, 0.4 MG PO DAILY, (Reported) Physical Exam-Cardiology Physical Exam Vital Signs/I&O Capillary Refill : Constitutional: No appears stated age, No AAO x 3, No apparent distress, No PERRL, No well-developed, No well-nourished, No other HEENT: No PERRL, No normal ENT inspection, No TMs normal, No pharynx normal, No scleral icterus (R), No scleral icterus (L), No pale conjunctivae (R), No pale conjunctivae (L), No photophobia, No TM abnormal (R), No TM abnormal (L), No pharyngeal erythema, No tonsillar exudate, No other, No discharge, No EOMI, No hearing is well preserved, No hard of hearing, No oral hygience is good, No ulceration, No xanthelasmas are seen Neck: No non-tender, No full range of motion, No supple, No normal inspection, No carotid bruit, No limited range of motion, No lymphadenopathy (R), No lymphadenopathy (L), No tender lateral, No tender midline, No thyromegaly, No other, No carotid pulses are 2 + bilaterally, No with good upstrokes Respiratory: No accessory muscle use, No respiratory distress, No chest tender , No chest expansion is symmetric, No chest is bilaterally symmetric, No lungs clear to percussion, No lungs clear to auscultation, No crackles, No rhonchi, No rales, No stridor, No wheezing, No pleural rub, No other Cardiovascular: No regular rate-rhythm, No irregularly irregular, No extra beats, No parasternal heave is noted, No JVD, No edema, No bradycardia, No tachycardia, No point of maximal impulse, No cardiac thrills are palpable, No S1 and S2, No gallop/S3, No gallop/S4, No diastolic murmur, No systolic murmur, No friction rub, No click, No other Gastrointestinal: No tender, No soft, No round, No distended, No pulsatile mass , No organomegaly, No guarding, No rebound, No tenderness, No hernia, No mass, No audible bowel sounds, No abnormal bowel sounds, No abdominal bruits, No spleenomegaly, No other Rectal: deferred Extremities: No normal range of motion, No non-tender, No normal inspection, No pedal edema, No calf tenderness, No normal capillary refill, No pelvis stable , No calf tenderness, No inflammation, No pedal edema, No slow capillary refill , No swelling, No other, No abrasion, No clubbing, No cyanosis, No ecchymosis, No laceration, No no lower extremity edema bilateral, No significant edema, No tenderness, No wound Neurologic/Psychiatric: No enrollment clerk II-XII nml as tested, No no motor/sensory deficits, No alert, No normal mood/affect, No oriented x 3, No abnormal cerebellar tests, No abnormal enrollment clerk II-XII, No abnormal gait, No aphasia, No EOM palsy, No facial droop, No motor weakness, No sensory deficit, No depressed affect, No disoriented x 3, No other, No grossly intact, No power is 5/5 both on sides Skin: No normal color, No warm/dry, No cyanosis, No cool, No diaphoresis, No damp, No ecchymosis, No jaundice, No mottled, No pallor, No rash, No tattoos/ piercings, No ulcerations, No rash on exposed areas, No ulcerations on exposed areas, No other Data Review Labs Laboratory Tests 11/20/16 21:21: White Blood Count 13.8H, Red Blood Count 5.45, Hemoglobin 17.0, Hematocrit 49, Mean Corpuscular Volume 90, Mean Corpuscular Hemoglobin 31, Mean Corpuscular Hemoglobin Concent 35, Red Cell Distribution Width 13.2, Platelet Count 168, Mean Platelet Volume 11.9H, Neutrophils (%) (Auto) 60, Lymphocytes (%) (Auto) 29 , Monocytes (%) (Auto) 8, Eosinophils (%) (Auto) 3, Basophils (%) (Auto) 1, Neutrophils # (Auto) 8.2H, Lymphocytes # (Auto) 4.1H, Monocytes # (Auto) 1.1H, Eosinophils # (Auto) 0.4H, Basophils # (Auto) 0.1, Prothrombin Time 12.8, INR Comment 1.0, Activated Partial Thromboplast Time 29, B-Type Natriuretic Peptide < 10.0 11/20/16 21:58: Sodium Level 137, Potassium Level 3.8, Chloride Level 104, Carbon Dioxide Level 22, Anion Gap 11, Blood Urea Nitrogen 13, Creatinine 1.00, Estimat Glomerular Filtration Rate > 60, BUN/Creatinine Ratio 13, Glucose Level 220H, Calcium Level 8.3L, Magnesium Level 2.2, Total Bilirubin 0.4, Aspartate Amino Transf ( AST/SGOT) 18, Alanine Aminotransferase (ALT/SGPT) 31, Alkaline Phosphatase 102, Total Creatine Kinase 203H, Creatine Kinase MB 7.8*H, Troponin I < 0.30, Total Protein 6.3L, Albumin 3.7, Amylase Level 19L, Lipase 25 ECG Impression ECG Initial ECG Impression: Acute NE Comment Inferior STEMI A/P-Cardiology Assessment/Admission Diagnosis Inferior STEMI, borderline DM, smoking, hyperlipidemia, PPM Plan STEMI - Emergent Coronary Angiography with PCI with VINCE to the mid RCA. Mild to moderate CAD in OM and LAD. Normal LVEF. Low LVEDP -> IV fluids given. aspirin, plavix, statin, bb and dhruv inhibitor. Smoking cessation strongly recommended. High dose Lipitor PPM - device interrogation as an outpatient. echo in Chantel LUNA MD Nov 20, 2016 11:29 pm
[2016-11-20 23:30] VITALS: BP 120/63
[2016-11-20] MEDS ORDERED: PATIENT MAY USE OWN MEDS, ALL PO SCH (23:30)
--- NOTE | 2016-11-20 23:30 | Cardiology Post Procedure Note ---
Post-Procedure Note Physician (s)/Cook Sauce (s) Physician Chantel GARCIA MD Pre-Procedure Diagnosis Pre-Procedure Diagnosis: stemi Post-Procedure Note Procedure Start Date: Nov 20, 2016 Procedure Start Time: 22:40 Name of Procedure: Primary PCI Findings/Procedure Note Primary PCI with VINCE to mid RCA. successful Normal LVEF on LVgram Anesthesia Type: Conscious Sedation Estimated blood loss (mL): 20 Contrast Amount: 185ml Post-Procedure Diagnosis Post-operative diagnosis: Successful primary PCI to mid RCA Acute stemi Chantel GARCIA MD Nov 20, 2016 11:30 pm
[2016-11-20 23:45] VITALS: BP 105/62
[2016-11-21] VITALS (25 sets, daily range): BP systolic 101–163; BP diastolic 60–98
[2016-11-21] MEDS: NS IV 1000 ML 1,000 ML IV SCH ×3 (03:47→19:25)
[2016-11-21 05:07] LABS: BASOPHILS # (AUTO) 0.1 10^3/uL (0.0-0.1); BASOPHILS % (AUTO) 1 % (0-10); EOSINOPHILS # (AUTO) 0.2 10^3/uL (0.0-0.3); EOSINOPHILS % (AUTO) 2 % (0-10); LYMPHOCYTES # (AUTO) 2.9 X 10^3 (1.0-4.0); LYMPHOCYTES % (AUTO) 26 % (12-44); MEAN CORPUSCULAR HEMOGLOBIN 30 PG (25-34); MEAN CORPUSCULAR HGB CONC 33 G/DL (32-36); MEAN CORPUSCULAR VOLUME 91 FL (80-99); MEAN PLATELET VOLUME 11.7 FL (7.4-10.4); MONOCYTES # (AUTO) 0.7 X 10^3 (0.0-1.0); MONOCYTES % (AUTO) 6 % (0-12); NEUTROPHILS # (AUTO) 7.4 X 10^3 (1.8-7.8); NEUTROPHILS % (AUTO) 66 % (42-75); PLATELET COUNT 142 10^3/uL (130-400); RED BLOOD COUNT 5.29 10^6/uL (4.35-5.85); RED CELL DISTRIBUTION WIDTH 13.2 % (10.0-14.5); WHITE BLOOD COUNT 11.3 10^3/uL (4.3-11.0)
[2016-11-21 05:31] LABS: ANION GAP 11 MMOL/L (5-14); BLOOD UREA NITROGEN 13 MG/DL (7-18); BUN/CREATININE RATIO 14; CALCIUM 8.2 MG/DL (8.5-10.1); CARBON DIOXIDE 21 MMOL/L (21-32); CHLORIDE 105 MMOL/L (98-107); CREATININE SERUM 0.96 MG/DL (0.60-1.30); GFR ESTIMATED > 60; GLUCOSE 199 MG/DL (70-105); MAGNESIUM 2.3 MG/DL (1.8-2.4); PHOSPHORUS 3.8 MG/DL (2.3-4.7); SODIUM 137 MMOL/L (135-145)
[2016-11-21] MEDS: POTASSIUM CL 10MEQ/50ML IVPB 50 ML IV SCH (06:00)
[2016-11-21] MEDS: KCL 20 MEQ TAB (K-DUR) PO SCH (06:00)
[2016-11-21] MEDS: MAGNESIUM 1 GM/100 ML IVPB 100 ML IV SCH (06:00)
--- NOTE | 2016-11-21 06:55 | Diagnostic Imaging Report ---
INDICATION: History of chest pain. Myocardial infarction. COMPARISON: 11/20/2016. FINDINGS: Single frontal view of the chest demonstrates stable heart size and pulmonary vascularity. Left-sided pacemaker is noted. The lungs are well aerated and clear. No large pleural effusion or pneumothorax is seen. The visualized osseous structures show no acute abnormalities. IMPRESSION: 1. No acute cardiopulmonary process. Dictated by: Dictated on workstation # [id number]
--- NOTE | 2016-11-21 07:50 | CARDIAC CATHETERIZATION ---
DATE OF SERVICE: 11/20/2016 CARDIOLOGY ANGIOGRAPHY REPORT INDICATION: Acute inferior STEMI. PREOPERATIVE DIAGNOSIS: Acute inferior STEMI. POSTOPERATIVE DIAGNOSES: 1. Acute inferior STEMI. 2. Successful primary percutaneous coronary intervention with drug-eluting stent to the mid right coronary artery. HISTORY: The patient is a 56 year old gentleman who has a history of active smoking, borderline diabetes and pacemaker for tachybrady syndrome. He presents with prolonged episode of chest pain and was found to have acute inferior ST elevation. He was emergently taken to the catheterization lab. PROCEDURE PERFORMED: 1. Coronary angiography. 2. Left heart catheterization. 3. Primary percutaneous coronary intervention. BLOOD LOSS: 20 mL. COMPLICATIONS: None. SPECIMENS TAKEN: None. ANTICOAGULATION: Intravenous heparin. CONTRAST: 185 mL of Omnipaque. FLUOROSCOPY TIME: 8.5 minutes. FLUOROSCOPY DOSE: 1561 mGy. PROCEDURE DETAILS: The patient was brought to the catheterization laboratory after informed consent was taken. All the risks and complications were explained. The patient was draped and prepped in the usual sterile fashion. Access was gained in the right femoral artery with a 6-Malagasy sheath. We went in with right-sided guide catheter. CORONARY ANGIOGRAPHY: 1. Left main patent. 2. LAD: Mild to moderate mid disease. This is a transapical vessel. 3. Left circumflex artery: There is moderate stenosis of the first obtuse marginal artery. Stenosis is 40%. 4. RCA: Total mid occlusion. 5. Left heart catheterization. Aortic pressure is 171/83 mmHg. Left ventricular pressure is 107/-3 mmHg, LVEDP 8 mmHg. LVEF is normal. There is no gradient across the aortic valve. No significant wall motion abnormalities were seen. RECOMMENDATIONS: Primary percutaneous coronary intervention to the mid occluded mid right coronary artery is recommended. PCI DETAILS: A JR4 guide catheter, BMW guidewire, IV heparin for anticoagulation. ACT was over 250 seconds. We crossed the lesion with the BMW guidewire and took a 2.0x15mm semi-compliant balloon and made the first inflation at 6 atmospheres for 15 seconds. This resulted in recanalization of the blood vessel. Door to balloon time was 74 minutes. We then took the same balloon and did higher pressure inflation at 10 atmospheres. We then took a 2.5 x 22mm Resolute Integrity drug-eluting stent and deployed it at 16 atmospheres for 30 seconds. We then took a 3.0 x 15 noncompliant balloon and did 2 inflations in the mid and proximal segment at 16 and 18 atmospheres for 30 seconds each. Good results were noted. Mild calcification is noted in the proximal segment of the RCA. There is also mild to moderate disease in the distal RCA which was left alone. The wire was taken out at the end of the procedure and angiogram showed excellent PANCHITO-3 flow with 0 residual stenosis. The patient tolerated the procedure well and did not have any complication. IMPRESSION/CONCLUSION: 1. Acute inferior wall STEMI with successful primary PCI with drug-eluting stent to the mid RCA. 2. Aspirin, Plavix, beta-ling, statin, LEON inhibitor. 3. The patient will be transferred to the ICU. CBC, basic metabolic panel and troponin will be done in the morning. 4. Echocardiogram in the morning. 5. Smoking cessation was strongly recommended. Job ID: [id number] DocumentID: [id number] Dictated Date: 11/21/2016 00:33:39 Farm Rancher Date: 11/21/2016 07:50:12 Dictated By: FIDENCIO GARCIA MD MTDD
[2016-11-21] MEDS: ASPIRIN E.C. 81 MG (ECOTRIN) TAB PO SCH (08:56)
[2016-11-21] MEDS: CLOPIDOGREL 75 MG (PLAVIX) TABLET PO SCH (08:56)
[2016-11-21] MEDS: meTOprolol TARTRATE 25 MG (LOPRESSOR) TABLET PO SCH ×2 (08:56→21:21)
[2016-11-21] MEDS: lisINopril 5 MG (PRINIVIL) TABLET PO SCH (08:56)
[2016-11-21] MEDS ORDERED: RT-ALBUTEROL SULF 2.5 MG/3 ML PRE-MIX VIAL ONE (09:57)
[2016-11-21] MEDS ORDERED: RT-ALBUTEROL HFA (VENTOLIN) PER PUFF IH PRN (10:00)
[2016-11-21] MEDS ORDERED: RT-ALBUTEROL SULF 2.5 MG/3 ML PRE-MIX VIAL IH PRN ×2 (10:00→10:15)
[2016-11-21] MEDS ORDERED: ALBU2.5V4 NEB (10:06)
[2016-11-21] MEDS ORDERED: RT-ALBUINH INH (10:06)
[2016-11-21] MEDS ORDERED: ARIP2TAB11 PO (10:11)
[2016-11-21] MEDS ORDERED: NITR0.4T SL (10:12)
--- NOTE | 2016-11-21 12:26 | Cardiology Progress Note ---
Cardiology SOAP Progress Note Subjective: No further chest pain Objective: I&O/Vital Signs Vital Sign - Last 12Hours 11/21/16 11/21/16 11/21/16 11/21/16 01:30 02:00 03:00 04:00 Pulse 71 67 68 72 Resp 15 14 14 14 B/P (MAP) 115/73 121/65 120/80 129/71 Pulse Ox 96 94 94 94 O2 Delivery Nasal Cannula Nasal Cannula Nasal Cannula Nasal Cannula O2 Flow Rate 3.00 3.00 3.00 3.00 11/21/16 11/21/16 11/21/16 11/21/16 04:00 04:01 05:00 06:00 Temp 96.6 Pulse 65 65 Resp 11 8 B/P (MAP) 146/84 129/89 Pulse Ox 97 96 98 O2 Delivery Nasal Cannula Nasal Cannula Nasal Cannula O2 Flow Rate 3.00 3.00 3.00 11/21/16 11/21/16 11/21/16 11/21/16 07:00 07:00 07:53 08:00 Temp 96.8 Pulse 65 62 64 Resp 20 20 B/P (MAP) 135/79 122/70 Pulse Ox 94 93 O2 Delivery Nasal Cannula Nasal Cannula O2 Flow Rate 3.00 3.00 11/21/16 11/21/16 11/21/16 11/21/16 08:25 09:00 10:00 10:08 Pulse 68 60 Resp 20 12 B/P (MAP) 163/94 137/87 Pulse Ox 98 93 95 95 O2 Delivery Nasal Cannula Nasal Cannula Nasal Cannula Room Air O2 Flow Rate 3.00 3.00 3.00 11/21/16 12:00 Temp 97.3 Intake and Output 11/22/16 00:00 Intake Total 900 ml Balance 900 ml Weight (Pounds): 273 Weight (Ounces): 3.2 Weight (Calculated Kilograms): [phone] Side: right Groin site without hematoma: Yes Condition: extremity w/d/p Swelling: without swelling Constitutional: No appears stated age, No AAO x 3, No apparent distress, No PERRL, No well-developed, No well-nourished, No other Respiratory: No accessory muscle use, No respiratory distress, No chest tender , No chest expansion is symmetric, No chest is bilaterally symmetric, No lungs clear to percussion, No lungs clear to auscultation, No crackles, No rhonchi, No rales, No stridor, No wheezing, No pleural rub, No other Cardiovascular: No regular rate-rhythm, No irregularly irregular, No extra beats, No parasternal heave is noted, No JVD, No edema, No bradycardia, No tachycardia, No point of maximal impulse, No cardiac thrills are palpable, No S1 and S2, No gallop/S3, No gallop/S4, No diastolic murmur, No systolic murmur, No friction rub, No click, No other Gastrointestional: No tender, No soft, No round, No distended, No pulsatile mass, No organomegaly, No guarding, No rebound, No tenderness, No hernia, No mass, No audible bowel sounds, No abnormal bowel sounds, No abdominal bruits, No spleenomegaly, No other Extremities: No normal range of motion, No non-tender, No normal inspection, No pedal edema, No calf tenderness, No normal capillary refill, No pelvis stable , No calf tenderness, No inflammation, No pedal edema, No slow capillary refill , No swelling, No other, No abrasion, No clubbing, No cyanosis, No ecchymosis, No laceration, No no lower extremity edema bilateral, No significant edema, No tenderness, No wound Neurologic/Psychiatric: No special education preschool teacher II-XII nml as tested, No no motor/sensory deficits, No alert, No normal mood/affect, No oriented x 3, No abnormal cerebellar tests, No abnormal special education preschool teacher II-XII, No abnormal gait, No aphasia, No EOM palsy, No facial droop, No motor weakness, No sensory deficit, No depressed affect, No disoriented x 3, No other, No grossly intact, No power is 5/5 both on sides Skin: No normal color, No warm/dry, No cyanosis, No cool, No diaphoresis, No damp, No ecchymosis, No jaundice, No mottled, No pallor, No rash, No tattoos/ piercings, No ulcerations, No rash on exposed areas, No ulcerations on exposed areas, No other Results/Procedures: Labs Laboratory Tests 11/20/16 21:21: White Blood Count 13.8H, Red Blood Count 5.45, Hemoglobin 17.0, Hematocrit 49, Mean Corpuscular Volume 90, Mean Corpuscular Hemoglobin 31, Mean Corpuscular Hemoglobin Concent 35, Red Cell Distribution Width 13.2, Platelet Count 168, Mean Platelet Volume 11.9H, Neutrophils (%) (Auto) 60, Lymphocytes (%) (Auto) 29 , Monocytes (%) (Auto) 8, Eosinophils (%) (Auto) 3, Basophils (%) (Auto) 1, Neutrophils # (Auto) 8.2H, Lymphocytes # (Auto) 4.1H, Monocytes # (Auto) 1.1H, Eosinophils # (Auto) 0.4H, Basophils # (Auto) 0.1, Prothrombin Time 12.8, INR Comment 1.0, Activated Partial Thromboplast Time 29, B-Type Natriuretic Peptide < 10.0 11/20/16 21:58: Sodium Level 137, Potassium Level 3.8, Chloride Level 104, Carbon Dioxide Level 22, Anion Gap 11, Blood Urea Nitrogen 13, Creatinine 1.00, Estimat Glomerular Filtration Rate > 60, BUN/Creatinine Ratio 13, Glucose Level 220H, Calcium Level 8.3L, Magnesium Level 2.2, Total Bilirubin 0.4, Aspartate Amino Transf ( AST/SGOT) 18, Alanine Aminotransferase (ALT/SGPT) 31, Alkaline Phosphatase 102, Total Creatine Kinase 203H, Creatine Kinase MB 7.8*H, Troponin I < 0.30, Total Protein 6.3L, Albumin 3.7, Amylase Level 19L, Lipase 25 11/21/16 02:00: Troponin I 21.02*H 11/21/16 04:06: White Blood Count 11.3H, Red Blood Count 5.29, Hemoglobin 16.0, Hematocrit 48, Mean Corpuscular Volume 91, Mean Corpuscular Hemoglobin 30, Mean Corpuscular Hemoglobin Concent 33, Red Cell Distribution Width 13.2, Platelet Count 142, Mean Platelet Volume 11.7H, Neutrophils (%) (Auto) 66, Lymphocytes (%) (Auto) 26 , Monocytes (%) (Auto) 6, Eosinophils (%) (Auto) 2, Basophils (%) (Auto) 1, Neutrophils # (Auto) 7.4, Lymphocytes # (Auto) 2.9, Monocytes # (Auto) 0.7, Eosinophils # (Auto) 0.2, Basophils # (Auto) 0.1, Sodium Level 137, Potassium Level 4.0, Chloride Level 105, Carbon Dioxide Level 21, Anion Gap 11, Blood Urea Nitrogen 13, Creatinine 0.96, Estimat Glomerular Filtration Rate > 60, BUN/ Creatinine Ratio 14, Glucose Level 199H, Calcium Level 8.2L, Magnesium Level 2.3 , Phosphorus Level 3.8 A/P: Assessment/Dx: Inferior STEMI, borderline DM, smoking, hyperlipidemia, PPM Plan: STEMI: Aspirin, Plavix, beta ling, LEON inhibitor, statin. Generalized wheezing: We will request Dr. Alexander to consult. Patient has history of active smoking and possibly COPD. Permanent pacemaker: Device interrogation as an outpatient. Smoking: Strongly suggested to quit. Add lipid profile and troponin for morning. Hopefully discharge tomorrow. Thank you for your consultation. Please call me if you have any questions. Bailee Luna MD, FACP, FACC, FSCAI, FHRS, CCDS Interventional Cardiology Cardiac Electrophysiology Vascular Medicine and Endovascular Interventions Clinical Quality Measures AMI/AHF: ASA po Prior to arrival: Yes (324 GIVEN BY EMS IN ROUTE) Chantel LUNA MD Nov 21, 2016 12:26 pm
[2016-11-21] MEDS ORDERED: RT-ALBUTEROL SULF 2.5 MG/3 ML PRE-MIX VIAL IH SCH (14:00)
--- NOTE | 2016-11-21 14:37 | Pulmonary Consultation ---
History of Present Illness History of Present Illness Date of Consultation 11/21/16 14:32 Time Seen by Provider: 07:33 Date of Admission History of Present Illness 56yo with hx of tobacco use and COPD presented secondary to acute chest pain 7/ 10 radiating to both arms that started 2 hrs prior to admission. THis was not relieved with NTG X2. 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 Pt is now S/p cath and CP is now resolved. I am consulted secondary to worsening SOB that started after cath and is associated with mild wheezing. Allergies and Home Medications Allergies Coded Allergies: No Known Drug Allergies (Unverified , 11/17/16) Home Medications Albuterol Sulfate 1 Puff Puff, 2 PUFF INH Q4H PRN for SHORTNESS OF BREATH, ( Reported) Albuterol Sulfate 2.5 Mg/3 Ml Vial.neb, 2.5 MG NEB Q6H PRN for SHORTNESS OF BREATH, (Reported) Aripiprazole 2 Mg Tablet, 2 MG PO DAILY, (Reported) LAST FILLED #30 09-03-16 Bupropion HCl 300 Mg Tab.er.24h, 300 MG PO DAILY, (Reported) Fluticasone/Vilanterol 1 Each Blst.w.dev, 1 PUFF IH DAILY, (Reported) LAST FILLED 09-03-16 Lisinopril 20 Mg Tablet, 20 MG PO DAILY, (Reported) LAST FILLED #30 09-03-16 Nitroglycerin 0.4 Mg Tab.subl, 0.4 MG SL UD PRN for CHEST PAIN, (Reported) Pravastatin Sodium 20 Mg Tablet, 20 MG PO DAILY, (Reported) LAST FILLED #30 09-03-16 Sertraline HCl 100 Mg Tablet, 100 MG PO DAILY, (Reported) LAST FILLED #30 09-03-16 Tamsulosin HCl 0.4 Mg Cap.er.24h, 0.4 MG PO DAILY, (Reported) Past Xmoqyaw-Romiqn-Yckvye Hx Patient Social History Alcohol Use: Rarely Uses Number of Drinks Today: 0 Alcohol Beverage of Choice: Wine Recreational Drug Use: No Smoking Status: Current Everyday Smoker Type Used: Cigarettes 2nd Hand Smoke Exposure: Yes Recent Foreign Travel: No Contact w/Someone Who Travel: No Recent Infectious Disease Expo: No Recent Hopitalizations: No Physical Abuse: No Sexual Abuse: No Immunizations Up To Date Date of Pneumonia Vaccine: Nov 17, 2014 Seasonal Allergies Seasonal Allergies: No Surgeries History of Surgeries: Yes (RIGHT ANKLE FX/ORIF WITH LATER HARDWARE REMOVAL, ORAL SURGERY) Surgeries: Gallbladder, Orthopedic, Pacemaker Respiratory History of Respiratory Disorde: Yes (CHRONIC COUGH; SCAR TISSUE ON LUNGS FROM PNEUMONIA) Respiratory Disorders: Asthma, Pneumonia, Chronic Bronchitis, COPD, Emphysema Cardiovascular History of Cardiac Disorders: Yes (PACEMAKER FOR [employer] ARRHYTHMIAS) Cardiac Disorders: High Cholesterol, Hypertension Neurological History of Neurological Disord: No Genitourinary History of Genitourinary Disor: No Gastrointestinal History of Gastrointestinal Di: No Musculoskeletal History of Musculoskeletal Dis: Yes (RIGHT ANKLE FX ON 7 PLACES-S/P ORIF WITH LATER HARDWARE REMOVAL) Endocrine History of Endocrine Disorders: No ("MIGHT BE BORDERLINE DIABETIC") HEENT History of HEENT Disorders: No Cancer History of Cancer: No Psychosocial History of Psychiatric Problem: No Suicide Risk Score: 0 Integumentary History of Skin or Integumenta: No Blood Transfusions History of Blood Disorders: No Adverse Reaction to a Blood Tr: No Review of Systems Time Seen by Provider: 07:40 Constitutional: Malaise, No: Fever, Chills, Sweats, Weakness, Other Eyes: No: Pain, Vision change, Conjunctivae inflammation, Eyelid inflammation, Other, Redness ENT: No: Ear pain, Ear discharge, Nose pain, Nose discharge, Nose congestion, Mouth pain, Mouth swelling, Throat pain, Throat swelling, Other Respiratory: Cough, Dry, Shortness of breath, SOB with excertion, Wheezing, No : Hemoptysis Cardiovascular: Chest Pain, No: Palpitations, Paroxysmal Noc. Dyspnea, Edema Gastrointestinal: No: Nausea, Vomiting, Abdominal Pain, Diarrhea, Constipation , Melena, Hematochezia, Other Musculoskeletal: shoulder pain, arm pain Neurological: Weakness Exam Exam Vital Signs Date Time Temp Pulse Resp B/P (MAP) Pulse Ox O2 Delivery O2 Flow Rate FiO2 11/21/16 13:00 60 11/21/16 12:10 Room Air 11/21/16 12:00 97.3 11/21/16 10:08 95 Room Air 11/21/16 10:00 60 12 137/87 95 Nasal Cannula 3.00 11/21/16 09:00 68 20 163/94 93 Nasal Cannula 3.00 11/21/16 08:55 Room Air 11/21/16 08:25 98 Nasal Cannula 3.00 11/21/16 08:00 64 20 122/70 93 Nasal Cannula 3.00 11/21/16 07:53 96.8 11/21/16 07:00 62 20 135/79 94 Nasal Cannula 3.00 11/21/16 07:00 65 11/21/16 06:00 65 8 129/89 98 Nasal Cannula 3.00 11/21/16 05:00 65 11 146/84 96 Nasal Cannula 3.00 11/21/16 04:01 96.6 11/21/16 04:00 97 Nasal Cannula 3.00 11/21/16 04:00 72 14 129/71 94 Nasal Cannula 3.00 11/21/16 03:00 68 14 120/80 94 Nasal Cannula 3.00 11/21/16 02:00 67 14 121/65 94 Nasal Cannula 3.00 11/21/16 01:30 71 15 115/73 96 Nasal Cannula 3.00 11/21/16 01:00 71 16 119/72 97 Nasal Cannula 3.00 11/21/16 01:00 71 11/21/16 00:45 75 15 101/66 95 Nasal Cannula 3.00 11/21/16 00:30 73 16 108/69 92 Nasal Cannula 3.00 11/21/16 00:15 76 12 114/60 91 Nasal Cannula 3.00 11/21/16 00:00 94 Nasal Cannula 3.00 11/21/16 00:00 78 15 103/66 91 Nasal Cannula 3.00 11/20/16 23:45 80 21 105/62 93 Nasal Cannula 3.00 11/20/16 23:41 80 11/20/16 23:33 93 Nasal Cannula 3.00 11/20/16 23:30 96.3 80 12 120/63 93 Nasal Cannula 3.00 11/20/16 22:20 98.1 67 30 95 Nasal Cannula 2.0 11/20/16 21:25 Nasal Cannula 2.0 11/20/16 21:25 98.1 67 30 144/93 95 Nasal Cannula 2.0 11/20/16 21:25 95 Nasal Cannula 2.0 95 I & O 11/22/16 07:00 Intake Total 1140 ml Balance 1140 ml General Appearance: No Apparent Distress, WD/WN, Other (REEKS OF CIGARETTES) Neck: Full Range of Motion, Normal Inspection, Non Tender, Supple, No Carotid Bruit, No JVD Respiratory: Chest Non Tender, Normal Breath Sounds, No Accessory Muscle Use, Wheezing, Other (MILDLY DYSPNEIC) Cardiovascular: Regular Rate, Rhythm, No Murmur Capillary Refill: Less Than 3 Seconds Extremity: Normal Capillary Refill, Non Tender, No Calf Tenderness, Other ( LEFT LEG WITH 3+ EDEMA, RIGHT LEG WITH 1-2+ EDEMA. 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 Skin: Normal Color, Warm/Dry Results Lab Laboratory Tests 11/20/16 21:21 11/20/16 21:58 11/21/16 04:06 Assessment/Plan Assessment/Plan COPDAE with probable asthma -Pt does not have home oxygen and his Sp02 here has been good -DuoNEB QID -start solumedrol 40 IV Q 6 -add advair -start singulair, zyrtec, and flonase Inferior STEMI s/p cath -Cardiology gollwoing Tobacco use -education 254 Clinical Quality Measures AMI/AHF: ASA po Prior to arrival: Yes (324 GIVEN BY EMS IN ROUTE) DVT/VTE Risk/Contraindication: Risk Factor Score Per Nursin RFS Level Per Nursing on Admit: 2=Moderate HERMELINDA ROSEN DO Nov 21, 2016 14:37
[2016-11-21] MEDS ORDERED: RT-ALBUTEROL/IPRATROPIUM 3 ML (DUONEB) VIAL INH PRN (14:45)
[2016-11-21] MEDS: methylPREDNISolone 40 MG/ML (Solu-MEDROL) VIAL IV SCH ×2 (14:51→18:10)
[2016-11-21] MEDS ORDERED: methylPREDNISolone 40 MG/ML (Solu-MEDROL) VIAL IV SCH (18:00)
[2016-11-21] MEDS: RT-ADVAIR HFA 115/21 MCG PER PUFF IH SCH (19:36)
[2016-11-21] MEDS ORDERED: MONTELUKAST 10 MG (SINGULAIR) TAB PO SCH (21:00)
[2016-11-21] MEDS ORDERED: ATORVASTATIN 80 MG (LIPITOR) TABLET PO SCH (21:00)
[2016-11-22] VITALS (15 sets, daily range): BP systolic 111–167; BP diastolic 61–99
[2016-11-22] MEDS: methylPREDNISolone 40 MG/ML (Solu-MEDROL) VIAL IV SCH ×3 (00:51→12:12)
[2016-11-22 05:05] LABS: BASOPHILS % (AUTO) 0 % (0-10); EOSINOPHILS % (AUTO) 0 % (0-10); LYMPHOCYTES # (AUTO) 1.7 X 10^3 (1.0-4.0); LYMPHOCYTES % (AUTO) 13 % (12-44); MEAN CORPUSCULAR HEMOGLOBIN 31 PG (25-34); MEAN CORPUSCULAR HGB CONC 35 G/DL (32-36); MEAN CORPUSCULAR VOLUME 89 FL (80-99); MEAN PLATELET VOLUME 11.6 FL (7.4-10.4); MONOCYTES # (AUTO) 0.2 X 10^3 (0.0-1.0); MONOCYTES % (AUTO) 1 % (0-12); NEUTROPHILS # (AUTO) 10.8 X 10^3 (1.8-7.8); NEUTROPHILS % (AUTO) 86 % (42-75); PLATELET COUNT 148 10^3/uL (130-400); RED BLOOD COUNT 5.44 10^6/uL (4.35-5.85); RED CELL DISTRIBUTION WIDTH 12.8 % (10.0-14.5); WHITE BLOOD COUNT 12.7 10^3/uL (4.3-11.0)
[2016-11-22] MEDS: NS IV 1000 ML 1,000 ML IV SCH (05:11)
[2016-11-22 05:28] LABS: ANION GAP 11 MMOL/L (5-14); BLOOD UREA NITROGEN 13 MG/DL (7-18); BUN/CREATININE RATIO 14; CARBON DIOXIDE 23 MMOL/L (21-32); CHLORIDE 102 MMOL/L (98-107); CHOLESTEROL 202 MG/DL (< 200); DIRECT LDL 164 MG/DL (1-129); GFR ESTIMATED > 60; GLUCOSE 237 MG/DL (70-105); MAGNESIUM 2.3 MG/DL (1.8-2.4); PHOSPHORUS 3.2 MG/DL (2.3-4.7); POTASSIUM 4.3 MMOL/L (3.6-5.0); SODIUM 136 MMOL/L (135-145); TRIGLYCERIDES 109 MG/DL (<150); VLDL CHOLESTEROL 22 MG/DL (5-40)
[2016-11-22 05:45] LABS: TROPONIN I 11.02 NG/ML (<0.30)
[2016-11-22] MEDS: POTASSIUM CL 10MEQ/50ML IVPB 50 ML IV SCH (06:01)
[2016-11-22] MEDS: MAGNESIUM 1 GM/100 ML IVPB 100 ML IV SCH (06:01)
[2016-11-22] MEDS: KCL 20 MEQ TAB (K-DUR) PO SCH (06:01)
[2016-11-22] MEDS: RT-ADVAIR HFA 115/21 MCG PER PUFF IH SCH (06:25)
[2016-11-22] MEDS: RT-ALBUTEROL/IPRATROPIUM 3 ML (DUONEB) VIAL INH SCH ×3 (06:25→14:37)
--- NOTE | 2016-11-22 07:43 | Diagnostic Imaging Report ---
EXAM: CHEST 1 VIEW, AP/PA ONLY. INDICATION: ICU care management. Post catheterization. COMPARISON: Chest radiograph 11/21/2016. FINDINGS: Normal heart size and pulmonary vascularity. Mild atelectasis or infiltrate in the lingula. Cardiac pacer. No pleural effusion or pneumothorax. No acute osseous findings. IMPRESSION: Mild atelectasis or infiltrate in the lingula. Dictated by: Dictated on workstation # [id number]
[2016-11-22] MEDS ORDERED: METO-333 PO (07:44)
[2016-11-22] MEDS ORDERED: ASPI-983 PO (07:44)
[2016-11-22] MEDS ORDERED: LISI-556 PO (07:44)
[2016-11-22] MEDS ORDERED: ATOR80TA76 PO (07:44)
[2016-11-22] MEDS ORDERED: CLOP75TA28 PO (07:44)
[2016-11-22] MEDS ORDERED: LORA10TA7 PO (07:44)
--- NOTE | 2016-11-22 07:45 | Discharge Inst-Post CATH ---
Discharge Inst-CATH Post Cardiac Cath D/C Inst Follow Up/Plan Appointment with Dr. Miller in one to 2 weeks CARDIAC CATH DISCHARGE INSTRUCTIONS *Hold Metformin for 48 hours post heart cath. ACTIVITY * Go Home directly and rest. * Limit activity of the leg (or wrist if it was used) for 7 days including aerobics, swimming, jogging, bicycling, etc. * Restrict stair-climbing for 7 days if possible, if not, climb up with your non -cath leg, then bring together on the same step. * Avoid lifting, pushing, pulling or excessive movement of the affected extremity for 7 days. * Customary sexual activity may be resumed after 2 days-use caution not to use a position that strains or causes pain to the affected extremity. * No driving for 24 hours. * NO SMOKING. * Avoid straining for bowel movements for 7 days. * Gentle walking on level ground is allowed. * Returning to work will depend on the type of procedure and the results. Your doctor will discuss this with you. CALL YOUR DOCTOR FOR ANY OF THE FOLLOWING: *If bleeding from the puncture site occurs- Apply gentle pressure to site with clean cloth and call your doctor or EMS. * If a knot or lump forms under the skin, increases in size, or causes pain. * If bruising appears to be worsening or moving further down your leg instead of disappearing. * Temperature above 101 F. CARE OF YOUR GROIN INCISION; * Bruising or purple discoloration of the skin near the puncture site is common. * You may shower only, no bathtub bathing for 5 days. Be careful to avoid slipping as your leg may feel stiff. * If a closure device was used on your femoral artery, please see the attached guide regarding care of the device and your leg. * REMOVE the dressing from your groin the next day after your procedure in the shower. CARE OF YOUR WRIST INCISION; * Bruising or purple discoloration of the skin near the puncture site is common. * You may shower. * DO NOT submerge wrist. * Remove dressing in 24 hours. WILLIAM MONTERO MD Nov 22, 2016 07:45
--- NOTE | 2016-11-22 07:47 | Pulmonary Progress Note ---
Subjective Time Seen by Provider: 07:56 Subjective/Events-last exam PT feels much improved. NO complications noted. Exam Exam Vital Signs Date Time Temp Pulse Resp B/P (MAP) Pulse Ox O2 Delivery O2 Flow Rate FiO2 11/22/16 06:35 Room Air 11/22/16 06:25 92 Room Air 11/22/16 06:00 73 23 167/96 90 Room Air 11/22/16 05:00 62 19 151/85 89 Room Air 11/22/16 04:00 97.1 72 22 111/61 92 Room Air 11/22/16 03:00 65 18 125/79 89 Room Air 11/22/16 02:00 60 20 116/72 92 Room Air 11/22/16 01:00 63 11/22/16 01:00 61 22 137/74 91 Room Air 11/22/16 00:15 92 Room Air 11/22/16 00:00 64 22 122/79 88 Room Air 11/21/16 23:00 66 17 125/80 91 Room Air 11/21/16 22:00 78 24 146/87 91 Room Air 11/21/16 21:00 77 29 136/64 90 Room Air 11/21/16 20:00 97.4 11/21/16 20:00 90 Room Air 11/21/16 20:00 83 21 141/86 91 Room Air 11/21/16 19:55 Room Air 11/21/16 19:37 91 Room Air 11/21/16 19:00 59 24 147/82 90 Room Air 11/21/16 19:00 59 11/21/16 18:00 60 28 157/98 92 Room Air 11/21/16 16:29 Room Air 11/21/16 16:23 97.4 60 20 116/69 94 Room Air 11/21/16 14:26 93 Room Air 11/21/16 14:00 61 26 139/67 93 Nasal Cannula 3.00 11/21/16 13:00 60 11/21/16 13:00 60 21 122/71 94 Nasal Cannula 3.00 11/21/16 12:10 Room Air 11/21/16 12:00 60 20 122/67 94 Nasal Cannula 3.00 11/21/16 12:00 97.3 11/21/16 10:08 95 Room Air 11/21/16 10:00 60 12 137/87 95 Nasal Cannula 3.00 11/21/16 09:00 68 20 163/94 93 Nasal Cannula 3.00 11/21/16 08:55 Room Air 11/21/16 08:25 98 Nasal Cannula 3.00 11/21/16 08:00 64 20 122/70 93 Nasal Cannula 3.00 11/21/16 07:53 96.8 General Appearance: No Apparent Distress, WD/WN, Other (REEKS OF CIGARETTES) Neck: Full Range of Motion, Normal Inspection, Non Tender, Supple, No Carotid Bruit, No JVD Respiratory: Chest Non Tender, Normal Breath Sounds, No Accessory Muscle Use, Wheezing, Other (MILDLY DYSPNEIC) Cardiovascular: Regular Rate, Rhythm, No Murmur Capillary Refill: Less Than 3 Seconds Extremity: Normal Capillary Refill, Non Tender, No Calf Tenderness, Other ( LEFT LEG WITH 3+ EDEMA, RIGHT LEG WITH 1-2+ EDEMA. 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 Pt is ok for discharge with prednisone slow taper, oxygen if needed, Home breo and rescue INH. 232 Clinical Quality Measures AMI/AHF: ASA po Prior to arrival: Yes (324 GIVEN BY EMS IN ROUTE) DVT/VTE Risk/Contraindication: Risk Factor Score Per Nursin RFS Level Per Nursing on Admit: 2=Moderate HERMELINDA ROSEN DO Nov 22, 2016 07:47
--- NOTE | 2016-11-22 07:48 | Cardiology Progress Note ---
Subjective Date Seen by Provider: Nov 22, 2016 Time Seen by Provider: 07:46 Subjective/Events-last exam patient is laying down in bed, feeling better, denied any chest pain, mild dyspnea. Discussed in length smoking cessation Review of Systems General: No Chills, No Night Sweats, No Fatigue, No Malaise, No Appetite, No Other HEENT: No Head Aches, No Visual Changes, No Eye Pain, No Ear Pain, No Dysphasia , No Sinus Congestion, No Post Nasal Drip, No Sore Throat, No Other Pulmonary: Dyspnea, Cough, No Pleuritic Chest Pain, No Other Cardiovascular: No: Chest Pain, Palpitations, Orthopnea, Paroxysmal Noc. Dyspnea, Edema, Lt Headedness, Other Objective-Cardiology Exam Last Set of Vital Signs Vital Signs 11/20/16 11/21/16 11/22/16 11/22/16 11/22/16 11/22/16 21:25 14:00 04:00 06:00 06:25 06:35 Temp 97.1 Pulse 73 Resp 23 B/P (MAP) 167/96 Pulse Ox 92 O2 Delivery Room Air O2 Flow Rate 3.00 FiO2 95 Capillary Refill : Less Than 3 Seconds I&O Intake and Output 11/23/16 00:00 Intake Total 1600 ml Output Total 1950 ml Balance -350 ml Intake Oral 1600 ml Output Urine Total 1950 ml General: Alert, Oriented X3, Cooperative HEENT: Atraumatic, PERRLA Neck: Supple, No JVD, No Thyromegaly Lungs: Normal Air Movement, Other (bilateral rhonchi, bilateral wheezing) Heart: Regular Rate, Normal S1, Normal S2, No Murmurs Abdomen: Normal Bowel Sounds, Soft, No Tenderness, No Hepatosplenomegaly, No Masses Extremities: No Clubbing, No Cyanosis, No Edema, Normal Pulses, No Tenderness/ Swelling Skin: No Rashes, No Breakdown, No Significant Lesion Neuro: Normal Gait, Normal Speech, Strength at 5/5 X4 Ext, Normal Tone, Sensation Intact Psych/Mental Status: Mental Status NL, Mood NL Results Lab Laboratory Tests 11/22/16 04:53 A/P-Cardiology Admission Diagnosis Inferior wall ST elevation myocardial infarction Coronary artery disease Hypertension Hyperlipidemia COPD Assessment/Plan Coronary artery disease status post ST elevation myocardial infarction, stenting to the right coronary artery door to balloon time 74 minutes, doing well recovering well. Hypertension, controlled, continue current medication Hyperlipidemia, started on Lipitor 80 mg daily COPD, active wheezing, seen by Dr. Alexander may need home oxygen Tobaccoism, patient expressed that he is quitting smoking this time. Encouraged to stop smoking Clinical Quality Measures AMI/AHF: ASA po Prior to arrival: Yes (324 GIVEN BY EMS IN ROUTE) DVT/VTE Risk/Contraindication: Risk Factor Score Per Nursin RFS Level Per Nursing on Admit: 2=Moderate WILLIAM MONTERO MD Nov 22, 2016 07:48
[2016-11-22] MEDS ORDERED: PRD10T PO (07:53)
[2016-11-22] MEDS: meTOprolol TARTRATE 25 MG (LOPRESSOR) TABLET PO SCH (08:31)
[2016-11-22] MEDS: CLOPIDOGREL 75 MG (PLAVIX) TABLET PO SCH (08:31)
[2016-11-22] MEDS: lisINopril 5 MG (PRINIVIL) TABLET PO SCH (08:31)
[2016-11-22] MEDS: ASPIRIN E.C. 81 MG (ECOTRIN) TAB PO SCH (08:32)
[2016-11-22] MEDS ORDERED: FLUTICASONE NASAL SPRAY (FLONASE) 16 GM BTL NS SCH (09:00)
[2016-11-22] MEDS ORDERED: LORATADINE (CLARITIN) 10 MG TAB PO SCH (09:00)
== END 2016-11-22 18:20 | disposition home or self-care (01) | DRG 247 ==
LOC: EDUNIT# 21:25 → ER 21:26 → CATH 21:45 → OBSVTOIN 23:34 → INTOOBSV 23:34 → ICU 23:34
PROVIDERS: ADMIT Internal Medicine Interventional Cardiology; ATTEND Internal Medicine Interventional Cardiology
PROC: 027034Z Dilation of Coronary Artery, One Artery with Drug-eluting Intraluminal Device, Percutaneous Approach (ICD-10-PCS; principal; 2016-11-20)
PROC: 4A023N7 Measurement of Cardiac Sampling and Pressure, Left Heart, Percutaneous Approach (ICD-10-PCS; 2016-11-20)
PROC: B2111ZZ Fluoroscopy of Multiple Coronary Arteries using Low Osmolar Contrast (ICD-10-PCS; 2016-11-20)
DX: I21.19 ST elevation (STEMI) myocardial infarction involving other coronary artery of inferior wall (principal); R73.03 Prediabetes; J44.1 Chronic obstructive pulmonary disease with (acute) exacerbation; J45.909 Unspecified asthma, uncomplicated; E78.5 Hyperlipidemia, unspecified; I10 Essential (primary) hypertension; F17.210 Nicotine dependence, cigarettes, uncomplicated; Z95.0 Presence of cardiac pacemaker
CPT/HCPCS: 36415; 71010; 80048; 80053; 80061; 82150; 82550; 82553; 83690; 83735; 83880; 84100; 84484; 85025; 85027; 85347; 85610; 85730; 87081; 93005; 93041; 93306; 93458; 94640; 94761; 96374; 96375; 96376

== ENCOUNTER → 2017-03-01 | Outpatient (CLI) | payer SELFPAY ==
[~2017-03-01] MED LIST changes: +ALBU2.5V4 NEB; +ARIP2TAB11 PO; +ASPI-983 PO; +ATOR80TA76 PO; +CLOP75TA28 PO; +LISI-556 PO; +LORA10TA7 PO; +METO-333 PO; +NITR0.4T SL; +PRD10T PO; +RT-ALBUINH INH
--- NOTE | 2017-03-01 11:45 | Diagnostic Imaging Report ---
PROCEDURE: CT chest without contrast. TECHNIQUE: Multiple contiguous axial images were obtained through the chest without the use of intravenous contrast. INDICATION: Asthma. Followup pleural thickening and nodularity in the left lung. COMPARISON: 11/17/2016. FINDINGS: Again seen is pleural thickening in the left hemithorax seen anteriorly and posteriorly. There is also irregular consolidation in the mid and lower left lung with irregularity similar to the previous exam. This appears to be associated with an old ununited rib fracture along the posterior lateral aspect of the left seventh rib. These findings could be secondary to prior injury. There is also a calcified granuloma seen in the left upper lobe. The heart size is normal. No pleural or pericardial effusion. Pacemaker leads are noted. Sections in the upper abdomen demonstrate diffuse hepatic steatosis. The osseous structures demonstrate mild degenerative changes. IMPRESSION: Pleural thickening and parenchymal densities in the left lung are again noted without change. There is also an ununited nondisplaced old fracture of the posterior lateral aspect of the left seventh rib. The findings may relate to scarring after injury and/or infection. No suspicious nodule or mass. Another followup in 9 months is suggested to ensure longer-term stability. Dictated by: Dictated on workstation # [id number]
== END ==
LOC: RAD 10:34
PROVIDERS: ATTEND Nurse Practitioner Family
DX: J92.9 Pleural plaque without asbestos (principal); J44.9 Chronic obstructive pulmonary disease, unspecified; S22.32XK Fracture of one rib, left side, subsequent encounter for fracture with nonunion; J98.4 Other disorders of lung
CPT/HCPCS: 71250